=== PATIENT | male | born 1995 | race Caucasian/White ===

== ENCOUNTER 2019-06-21 08:11 | Outpatient (CLI) | payer BC, SELFPAY ==
[2019-06-23 08:50] LABS: COVID-19 RT-PCR Result Negative
== END 2019-06-21 08:31 ==
PROVIDERS: Visit Provider Family Medicine
DX: Z20.828 Contact with and (suspected) exposure to other viral communicable diseases
CPT/HCPCS: U0003

== ENCOUNTER 2019-08-02 16:09 | Outpatient (REF) | payer BC, SELFPAY ==
[2019-08-04 12:46] LABS: COVID-19 RT-PCR UVMMC Result Negative (Negative)
== END 2019-08-02 16:29 ==
LOC: NCHCN 16:09
PROVIDERS: Visit Provider Nurse Practitioner Family
DX: J06.9 Acute upper respiratory infection, unspecified (principal)
CPT/HCPCS: U0003

== ENCOUNTER 2019-08-16 14:10 | Outpatient (REF) | payer BC, SELFPAY ==
[2019-08-19 13:27] LABS: COVID-19 RT-PCR Result NEGATIVE (Negative)
== END 2019-08-16 14:30 ==
LOC: NCHCN 14:10
PROVIDERS: Visit Provider Nurse Practitioner Family
DX: Z20.828 Contact with and (suspected) exposure to other viral communicable diseases (principal)
CPT/HCPCS: U0003

== ENCOUNTER 2022-02-26 13:02 | Emergency (ER) | payer BC, SELFPAY ==
[2022-02-26 13:07] VITALS: BP 139/77; PULSE 64; RESP 18; TEMP 36.9; O2SAT 100
--- NOTE | 2022-02-26 13:15 | RT.EKG_ITS ---
APPROVED REPORT Exam: Resting ECG Reason for Exam: dizzy Patient Location: E HR:60 bpm ECG Measurements Heart Rate 60 AXIS LA 149 P 35 QRSd 88 QRS 54 QT 390 T 35 QTc 391 Conclusion Sinus rhythm...normal P axis, V-rate 60- 99
--- NOTE | 2022-02-26 13:30 | DI.CT_ITS ---
Exam(s) CT HEAD WO EXAM: CT HEAD WO CLINICAL HISTORY: Headache, Dizziness, Facial numbness. TECHNIQUE: Imaging Protocol: Axial computed tomography images with coronal and sagittal reformatted images were created and reviewed COMPARISON: No exams were available for comparison FINDINGS: There are no skull fractures. There is no fluid in the visualized paranasal sinuses. There is no evidence of intracranial hemorrhage, mass effect, or shift of midline structures. There are no extra-axial fluid collections. The ventricles are not enlarged or shifted and there is no blo od within the ventricular system nor within the basal cisterns. IMPRESSION: No acute intracranial findings on this noninfused CT scan of the brain. RADIATION DOSE DELIVERED: 735.84mGy.cm Total DLP DATA REPOSITORY: All CT scans at this facility are submitted to the National Radiology Data Registry (NRDR) Dose Index Registry (DIR) with the [employer] (ACR). RADIATION OPTIMIZATION: All CT scans at this facility use at least one of these dose optimization te chniques: automated exposure control; mA and/or kV adjustment per patient size (includes targeted exa ms where dose is matched to clinical indication); or iterative reconstruction.
--- NOTE | 2022-02-26 13:32 | W.ED.GENAD ---
Discharge Plan Disposition Patient Disposition: Home Condition: Stable Discharge Details Clinical Impression: Elevated TSH, Dizziness Primary Care Provider: Ramiro Bahena ED Provider: Hanna Miranda Home Meds and New Rx's Prescriptions: No Action valacyclovir 500 mg tablet 1 tab PO DAILY Label Comments: TAKE 1 TABLET BY MOUTH TWICE DAILY FOR 3 DAYS THEN TAKE 1 TABLET BY MOUTH DAILY Discharge Instructions Instructions: Hypothyroidism (ED), Dizziness (ED) Additional Instructions: TSH level is 4.52 today, T4 is within normal limits which is 8.8. You are placed on care management list to help you establish primary care provider. Other labs and head CT are within normal limits Follow up with primary care provider in 3-5 days. Return to ED sooner if any worsening or concerns. Increase oral fluids. Please take Tylenol or Ibuprofen with food every 4-6 hours as needed for pain and swelling. Referrals: Sanaz Bridges [employer]INE [employer] [NURSE PRACTITIONER] - 5 days Discharge Data Discharge Date/Time-TO BE ENTERED AT DEPARTURE: 02/26/22 15:13 Medical Decision Making 27-year-old male presents to the ER with chief complaint of headache that radiates up from his occiput, dizziness and facial numbness which began while driving today. Also reports lightheadedness. He also states intermittent abdominal pain to his left upper quadrant for the last 1 month. He denies any recent injuries, no focal neurodeficits noted. Labs are noted below, TSH is slightly elevated at 4.52, free T4 is within normal limits. UDS and urinalysis within normal limits. Head CT shows no acute intracranial abnormalities. Discussed results with patient who verbalized understanding. He does endorse some weight gain. He was placed on a care management list to establish or revisit with his PCP. I did discuss that he needs to follow-up. He verbalized understanding. Discussed return instructions and home care. This text was generated using [employer] dictation system, please disregard any oddities of phrase or misspellings. Lab Data Lab results reviewed: Yes I reviewed the patient's lab results. Labs: Laboratory Tests Range/Units 02/26/22 02/26/22 02/26/22 13:35 13:35 13:35 WBC (4.4-10.8) 10^3/uL 6.97 RBC (4.36-5.78) 10^6/uL 4.80 Hgb (13.5-17.5) g/dL 16.0 Hct (40.0-50.0) % 46.4 MCV (80-95) fL 97 H MCH (27.0-33.0) pg 33.3 H MCHC (32.0-36.0) % 34.5 RDW (11.8-14.1) % 11.8 Plt Count (130-400) 10^3/uL 251 MPV (8.0-11.0) fL 10.2 Immature Gran % 0.6 Neutrophils % 59.0 Lymphocytes % 24.5 Monocytes % 7.2 Eosinophils % 8.0 Basophils % 0.7 Nucleated RBC % (0.0-0.3) % 0.0 Absolute Neutrophils (1.2-6.7) 10^3/uL 4.11 Absolute Lymphocytes (1.2-3.4) 10^3/uL 1.71 Absolute Monocytes (0.1-0.8) 10^3/uL 0.50 Absolute Eosinophils (0.0-0.7) 10^3/uL 0.56 Absolute Basophils (0.0-0.2) 10^3/uL 0.05 Sodium (136-145) mmol/L 138 Potassium (3.5-5.1) mmol/L 4.1 Chloride (98-107) mmol/L 102 Carbon Dioxide (21.0-32.0) mmol/L 31.5 Anion Gap (3-11) mmol/L 4.5 BUN (7-18) mg/dL 15 Creatinine (0.70-1.30) mg/dL 1.5 H Est GFR (CKD-EPI 2020) (mL/min/1.73m2) 64.63 Glucose (74-106) mg/dL 99 Calcium (8.5-10.1) mg/dL 9.4 Magnesium (1.8-2.4) mg/dL 2.2 Total Bilirubin (0.2-1.0) mg/dL 0.6 AST (15-37) U/L 27 ALT (16-63) U/L 38 Alkaline Phosphatase (46-116) U/L 61 Troponin I (<or=60) ng/L < 50 Total Protein (6.4-8.2) g/dL 8.5 H Albumin (3.4-5.0) g/dL 4.7 Lipase (73-393) U/L 132 TSH (0.36-3.74) uIU/mL 4.52 H Thyroxine (T4) (4.7-13.3) ug/dL 8.8 Urine Color (Yellow) Urine Clarity (Clear) Urine pH (5-8) Ur Specific [place] (1.005-1.025) Urine Protein (Negative) mg/dL Urine Ketones (Negative) mg/dL Urine Blood (Negative) Urine Nitrite (Negative) Urine Bilirubin (Negative) Urine Urobilinogen (Up TO 0.2) EU/dL Ur Leukocyte Esterase (Negative) Urine RBC (0-2) HPF Urine WBC (0-5) HPF Ur Epithelial Cells (Negative) HPF Urine Crystals (Negative) HPF Urine Bacteria (Negative) HPF Urine Casts (Negative) LPF Urine Mucus (Negative) Urine Other (Negative) Ur Culture Indicated? Urine Glucose (Negative) mg/dL Urine Opiates Screen (Negative) Urine Methadone Screen (Negative) Ur Barbiturates Screen (Negative) Ur Tricyclics Screen (Negative) Ur Amphetamines Screen (Negative) U Benzodiazepines Scrn (Negative) Urine Cocaine Screen (Negative) Ur THC Screen (Negative) Range/Units 02/26/22 02/26/22 14:22 14:22 WBC (4.4-10.8) 10^3/uL RBC (4.36-5.78) 10^6/uL Hgb (13.5-17.5) g/dL Hct (40.0-50.0) % MCV (80-95) fL MCH (27.0-33.0) pg MCHC (32.0-36.0) % RDW (11.8-14.1) % Plt Count (130-400) 10^3/uL MPV (8.0-11.0) fL Immature Gran % Neutrophils % Lymphocytes % Monocytes % Eosinophils % Basophils % Nucleated RBC % (0.0-0.3) % Absolute Neutrophils (1.2-6.7) 10^3/uL Absolute Lymphocytes (1.2-3.4) 10^3/uL Absolute Monocytes (0.1-0.8) 10^3/uL Absolute Eosinophils (0.0-0.7) 10^3/uL Absolute Basophils (0.0-0.2) 10^3/uL Sodium (136-145) mmol/L Potassium (3.5-5.1) mmol/L Chloride (98-107) mmol/L Carbon Dioxide (21.0-32.0) mmol/L Anion Gap (3-11) mmol/L BUN (7-18) mg/dL Creatinine (0.70-1.30) mg/dL Est GFR (CKD-EPI 2020) (mL/min/1.73m2) Glucose (74-106) mg/dL Calcium (8.5-10.1) mg/dL Magnesium (1.8-2.4) mg/dL Total Bilirubin (0.2-1.0) mg/dL AST (15-37) U/L ALT (16-63) U/L Alkaline Phosphatase (46-116) U/L Troponin I (<or=60) ng/L Total Protein (6.4-8.2) g/dL Albumin (3.4-5.0) g/dL Lipase (73-393) U/L TSH (0.36-3.74) uIU/mL Thyroxine (T4) (4.7-13.3) ug/dL Urine Color (Yellow) Yellow Urine Clarity (Clear) Clear Urine pH (5-8) 6.5 Ur Specific [place] (1.005-1.025) 1.015 Urine Protein (Negative) mg/dL Negative Urine Ketones (Negative) mg/dL Negative Urine Blood (Negative) Negative Urine Nitrite (Negative) Negative Urine Bilirubin (Negative) Negative Urine Urobilinogen (Up TO 0.2) EU/dL 0.2 Ur Leukocyte Esterase (Negative) Trace H Urine RBC (0-2) HPF Negative Urine WBC (0-5) HPF 0-2 Ur Epithelial Cells (Negative) HPF Negative Urine Crystals (Negative) HPF Negative Urine Bacteria (Negative) HPF Few Urine Casts (Negative) LPF Negative Urine Mucus (Negative) Negative Urine Other (Negative) Negative Ur Culture Indicated? No Urine Glucose (Negative) mg/dL Negative Urine Opiates Screen (Negative) Negative Urine Methadone Screen (Negative) Negative Ur Barbiturates Screen (Negative) Negative Ur Tricyclics Screen (Negative) Negative Ur Amphetamines Screen (Negative) Negative U Benzodiazepines Scrn (Negative) Negative Urine Cocaine Screen (Negative) Negative Ur THC Screen (Negative) Negative HPI General Mode of arrival: ambulatory. Date/Time Provider Initiated Documentation: 02/26/22 13:19. Limitations to Documentation: no limitations. Information obtained by: patient, RN notes reviewed and old records reviewed. HPI Narrative: 27-year-old male presents to the ER with chief complaint of headache that radiates up from his occiput, dizziness and facial numbness which began while driving today. Also reports lightheadedness. He also states intermittent abdominal pain to his left upper quadrant for the last 1 month. He denies any recent injuries, no focal neurodeficits noted. He does smoke occasional marijuana and does vape. He also reports some tinnitus which she has been dealing with for a while. Related Data Home Medications Medication Instructions Recorded Confirmed valacyclovir 500 mg tablet 1 tab PO DAILY 02/26/22 02/26/22 Allergies Allergy/AdvReac Type Severity Reaction Status Date / Time No Known Allergies Allergy Unverified 02/26/22 13:11 General Stated Complaint: Dizzy/Sync TAB: 3 Review of Systems All systems reviewed & are unremarkable except as noted in HPI and below Constitutional Constitutional: Reports as per HPI and Reports headache(s) ENT Ears, Nose, Mouth, and Throat: Reports dizziness and Reports headache(s) Cardiovascular Cardiovascular: Denies chest pain and Denies dyspnea Respiratory Respiratory: Denies dyspnea Musculoskeletal Musculoskeletal: Reports tingling Neurologic Neurologic: Reports as per HPI, Reports dizziness, Reports headache(s) and Reports tingling PFSH All Active Problems (Updated 02/26/22 @ 14:53 by Hanna Miranda NP) Elevated TSH (Acute) Dizziness (Acute) Social History Smoking/Tobacco Use Status: Current every day Tobacco Type: e-cigarettes Smoking risk assessment performed?: Yes Alcohol Intake: current Alcohol Intake frequency: a few times a week Drug use: Rarely Substance use type: marijuana Exam Narrative Exam Narrative: Constitutional: Alert and oriented x3. Appears stated age. Normal body habitus. Head: Normocephalic, no trauma. Eyes: Pupils PERRL, Red reflex noted, EOM's intact. Eyelids symmetrical without lesions, discharge, or swelling. ENT: Bilateral TM's WNL, External ear normal to inspection, no mastoid TTP, swelling, or erythema, Nasal turbinates WNL, no nasal discharge. Normal dentition, Posterior pharynx WNL, no exudate. Chest: RRR, Normal S1, S2, distal pulses intact. Resp: Lungs clear to auscultation bilaterally, no wheezes, rales, or rhonchi. Abdomen: Soft, non-distended, Normoactive bowel sounds all 4 quads. Musculoskeletal: Normal gait, 5/5 strength to all four extremities. Skin: No suspicious rashes or lesions. Capillary refill less than 2 sec. Neurologic: Cranial nerves II-XII intact. Alert and oriented x 3. Motor: No deficits noted. Sensory: Intact bilaterally all 4 extremities. Reflexes: DTR's intact bilaterally.. Hematologic/Lymphatic: No ecchymosis, no lymphadenopathy. Course Vital Signs Vital signs: Vital Signs Temperature 36.9 C 02/26/22 13:07 Pulse 64 02/26/22 13:07 Respiratory Rate 18 02/26/22 13:07 Blood Pressure 139/77 02/26/22 13:07 Pulse Oximetry 100 02/26/22 13:07 Temperature 36.9 C 02/26/22 13:07 Temperature Source Temporal Artery Scan 02/26/22 13:07 Pulse 64 02/26/22 13:07 Respiratory Rate 18 02/26/22 13:07 Respiratory Effort Non-Labored 02/26/22 13:12 Blood Pressure 139/77 02/26/22 13:07 Blood Pressure Position Sitting 02/26/22 13:07 Pulse Oximetry 100 02/26/22 13:07 Oxygen Delivery Method Room Air 02/26/22 13:07 Oxygen Flow Rate 0 02/26/22 13:07 PAWSS Have you Been Recently Intoxicated or Drunk Within the Last 30 days?: No Have you Ever Experienced Previous Episodes of Alcohol Withdrawal?: No Have you ever Experienced Withdrawal Seizures?: No Have you ever Experienced Delirium Tremens(DT)s?: No Have you ever undergone Alcohol Rehabilitation Treatment (i.e, inpt ot outpatient treatment programs)?: No Have you ever Experienced Blackouts?: No Have you ever Combined Alcohol with other Downers within the last 90 days?: No Have you ever Combined Alcohol with any other Substance of Abuse during the last 90 days?: No Positive Blood Alcohol level on Presentation? [PCS.BAL]: No Evidence of Increased Autonomic Activity (i.e. HR>120, tremor, sweating, agitation, nausea)?: No Result: 0
[2022-02-26 13:46] LABS: Abs Immature Grans 0.04 10^3/uL (0.0-0.06); Absolute Basophil Count 0.05 10^3/uL (0.0-0.2); Absolute Eosinophil Count 0.56 10^3/uL (0.0-0.7); Absolute Lymphocyte Count 1.71 10^3/uL (1.2-3.4); Absolute Neutrophil Count 4.11 10^3/uL (1.2-6.7); Basophils % 0.7; HCT 46.4 % (40.0-50.0); Immature Grans % 0.6; Lymphocytes % 24.5; MCH 33.3 pg (27.0-33.0); MCHC 34.5 % (32.0-36.0); MCV 97 fL (80-95); MPV 10.2 fL (8.0-11.0); Monocytes % 7.2; Platelet Count 251 10^3/uL (130-400); RDW 11.8 % (11.8-14.1); RDW-SD 42.2 fL; WBC 6.97 10^3/uL (4.4-10.8)
[2022-02-26 14:10] LABS: ALT 38 U/L (16-63); AST 27 U/L (15-37); Albumin 4.7 g/dL (3.4-5.0); Alkaline Phosphatase 61 U/L (46-116); Anion Gap 4.5 mmol/L (3-11); BUN 15 mg/dL (7-18); Bilirubin, Total 0.6 mg/dL (0.2-1.0); CO2 31.5 mmol/L (21.0-32.0); CREATININE 1.5 mg/dL (0.70-1.30); Calcium 9.4 mg/dL (8.5-10.1); Chloride 102 mmol/L (98-107); Estimated GFR 64.63 (mL/min/1.73m2); Glucose 99 mg/dL (74-106); Lipase 132 U/L (73-393); Magnesium 2.2 mg/dL (1.8-2.4); Potassium 4.1 mmol/L (3.5-5.1); Sodium 138 mmol/L (136-145); TSH 4.52 uIU/mL (0.36-3.74); Total Protein 8.5 g/dL (6.4-8.2); Troponin I < 50 ng/L (<or=60)
[2022-02-26 14:41] LABS: Bilirubin Negative (Negative); Blood Negative (Negative); Clarity Clear (Clear); Glucose Negative (Negative); Ketones Negative (Negative); Leukocyte Esterase Trace (Negative); Nitrite Negative (Negative); Specific Gravity 1.015 (1.005-1.025); Urobilinogen 0.2 EU/dL (Up TO 0.2); pH 6.5 (5-8)
[2022-02-26 14:42] LABS: T4 8.8 ug/dL (4.7-13.3)
[2022-02-26 14:51] LABS: *AMPHETAMINES SCREEN URINE Negative (Negative); *BARBITURATES SCREEN URINE Negative (Negative); *BENZODIAZEPINES SCREEN URINE Negative (Negative); Bacteria Few HPF (Negative); C & S Indicated? No; Cannabinoids THC Negative (Negative); Casts Negative LPF (Negative); Cocaine Screen,Urine Negative (Negative); Crystals Negative HPF (Negative); Epithelial Cells Negative HPF (Negative); METHADONE URINE SCREEN Negative (Negative); Mucus Negative (Negative); OPIATES URINE SCREEN Negative (Negative); Other Cells Negative (Negative); RBC Negative HPF (0-2); WBC 0-2 HPF (0-5)
[2022-02-26 14:52] LABS: Tricyclic Antidepressants Negative (Negative)
[2022-02-26 15:10] VITALS: RESP 18
== END 2022-02-26 15:13 | disposition home or self-care (01) ==
PROVIDERS: Emergency Provider Registered Nurse Emergency; PCP Physician Assistant
DX: R42 Dizziness and giddiness (principal); R94.6 Abnormal results of thyroid function studies; R20.2 Paresthesia of skin; R10.12 Left upper quadrant pain; R51.9 Headache, unspecified
CPT/HCPCS: 80053; 80307; 83690; 93005; 99284; 70450; 81003; 81015; 83735; 84436; 84443; 84484; 85025; 93010

== ENCOUNTER 2022-03-08 19:21 | Emergency (ER) | payer BC, SELFPAY ==
[2022-03-08] VITALS (11 sets, daily range): BP systolic 116–137; BP diastolic 67–84; PULSE 59–87; RESP 11–24; TEMP 36.7–37; O2SAT 95–100
--- NOTE | 2022-03-08 19:30 | RT.EKG_ITS ---
APPROVED REPORT Exam: Resting ECG Reason for Exam: chest and arm pain Patient Location: E HR:61 bpm ECG Measurements Heart Rate 61 AXIS VT 148 P 39 QRSd 82 QRS 48 QT 374 T 20 QTc 378 Conclusion Sinus rhythm...normal P axis, V-rate 60- [address] elevation, anterior leads...ST >0.15mV in V1-V4 Physician: no stemi
--- NOTE | 2022-03-08 19:45 | DI.RAD_ITS ---
Exam(s) XR CHEST 2V PA LATERAL EXAM: XR CHEST 2V PA LATERAL CLINICAL HISTORY: L neck pain TECHNIQUE: 2D digital imaging was performed. COMPARISON: No exams were available for comparison FINDINGS: HEART: Normal size. Aorta: Not dilated. PULMONARY VASCULATURE: Normal. LUNGS: Clear. PLEURAL SPACE: No pleural effusion or pneumothorax. BONE:Unremarkable for age. IMPRESSION: No acute abnormality. DATA REPOSITORY: RADIATION DOSE DELIVERED:
--- NOTE | 2022-03-08 19:50 | DI.CT_ITS ---
Exam(s) CT BRAIN NECK CTA EXAM: CT BRAIN NECK CTA CLINICAL HISTORY: L neck pain, dizzy. TECHNIQUE: Imaging Protocol: Axial CT angiography was performed with multi-slice acquisition and mu lti-planar and 3D reconstructions. CONTRAST MATERIAL: Intravenous: Omnipaque 350 Contrast volume:structured data in ml COMPARISON: No exams were available for comparison FINDINGS: CT Head W/O and W contrast: Ventricles and Extra axial spaces: Normal in size and morphology for the patient's age. Hemorrhage: None. Cerebral parenchyma: Normal. Midline shift: None. Brainstem/Cerebellum: Normal. Calvarium: Normal. Visualized Paranasal sinuses/Mastoids: Clear. Soft Tissues: Unremarkable. Enhancement: Normal. CTA Brain W: Internal Carotid Arteries: Petrous: Normal. Cavernous: Normal. Cerebral: Normal. Middle Cerebral Arteries: Right: No aneurysm, occlusion or significant stenosis. Left: No aneurysm, occlusion or significant stenosis. Anterior Cerebral Arteries: Right: No aneurysm, occlusion or significant stenosis. Left: No aneurysm, occlusion or significant stenosis. Posterior cerebral Arteries: Right: origin, normal variant. No aneurysm, occlusion or significant stenosis. Left: No aneurysm, occlusion or significant stenosis. Vertebral Arteries: Right: No aneurysm, occlusion or significant stenosis. Left: No aneurysm, occlusion or significant stenosis. Basilar Artery: No aneurysm, occlusion or significant stenosis. CTA Neck W: Common Carotid: Right: No aneurysm, occlusion or significant stenosis. Left: No aneurysm, occlusion or significant stenosis. External Carotid: Right: No aneurysm, occlusion or significant stenosis. Left: No aneurysm, occlusion or significant stenosis. Internal Carotid: Right: No aneurysm, occlusion or significant stenosis. Left: No aneurysm, occlusion or significant stenosis. Vertebral Artery: Right: No aneurysm, occlusion or significant stenosis. Left: No aneurysm, occlusion or significant stenosis. Lung Apices: Normal. Bones: Normal. Soft Tissues: Normal. IMPRESSION: 1. Normal CTA examination of the [place]. 2. Unremarkable CT Head. 3. Normal CTA examination of the neck. RADIATION DOSE DELIVERED: 2,075.25mGy.cm Total DLP DATA REPOSITORY: All CT scans at this facility are submitted to the National Radiology Data Registry (NRDR) Dose Index Registry (DIR) with the [employer] (ACR). RADIATION OPTIMIZATION: All CT scans at this facility use at least one of these dose optimization te chniques: automated exposure control; mA and/or kV adjustment per patient size (includes targeted exa ms where dose is matched to clinical indication); or iterative reconstruction.
--- NOTE | 2022-03-08 19:53 | ED.GENADUL_ITS ---
Discharge Plan Disposition Patient Disposition: Home Condition: Stable Discharge Details Clinical Impression: Paresthesia, Neck pain Primary Care Provider: Ramiro Bahena ED Provider: Chintan Norris Home Meds and New Rx's Prescriptions: Continued valacyclovir 500 mg tablet 1 tab PO DAILY Label Comments: TAKE 1 TABLET BY MOUTH TWICE DAILY FOR 3 DAYS THEN TAKE 1 TABLET BY MOUTH DA CR Discharge Instructions Instructions: Neck Pain (ED), Paresthesia (ED) Additional Instructions: Work-up in the ER does not reveal any obvious emergent process. Your symptoms have resolved spontaneously. [id number] anti-inflammatory medication as directed. Cool and/or warm compresses every 2 hours for 20 minutes. Gentle stretching as tolerated. Please watch for new or worsening symptoms and return to the ER for any concerns. Lastly, I would like you to contact your primary care provider tomorrow to discuss your ER visit, ongoing symptoms, and need for prompt outpatient reevaluation. Medical Decision Making This is a 27-year-old male presenting to the ER this evening, slightly anxious, reporting left sided neck pain, arm paresthesias that had been going on intermittently but more often they are than not since the end of January. Denies any obvious injury, trauma, recent illness. Was initially seen in the ER, subsequently seen by his PCP, awaiting an outpatient ultrasound, reports symptoms today worsened this evening while at work. He is left hand dominant. Clinically he appears slightly anxious but neurologically intact. Denies any active headache. Given his ongoing symptoms, plan to obtain a cardiac work-up including a single troponin given the duration of his symptoms, we will also obtain CTA of the brain and neck. During his last ER visit he had a Noncon CT of his brain which was unremarkable. Laboratory values are grossly unremarkable for obvious emergent process. Troponin less than 50. TSH normal at 2.35. No leukocytosis. Patient returned from CT and upon reevaluation he is no longer anxious. Patient appears calm. I am able to speak with him in greater length regarding his symptoms. He states that his symptoms seem to stem from the left side of his neck at the base of his skull, seem to radiate down into his shoulder, and then he gets paresthesias in his forearm, hand. He reports nothing makes the symptoms worse or better. He denies any true weakness. Denies any chest pain or shortness of breath whatsoever. He states that when he gets the symptoms he typically puts a warm compress to the back of his neck until his symptoms go away. Clinically this appears to be more musculoskeletal with the 10 paresthesias. Patient has a 2+ bilateral radial pulse which are equal. He remains hemodynamically stable. We discussed that his examination does not appear to be consistent with a DVT. Extremely low suspicion for acute cardiac etiology. Per the PERC criteria, I see no indication to obtain a D-dimer. Chest x-ray and CTA of the brain and neck are both unremarkable. Discussed results with patient. He is relieved and reports that he is feeling overall tired from a stressful day but is otherwise asymptomatic. We discussed disposition and he is comfortable discharge at this time. Strict discharge and return precautions were provided. Patient understands, is agreeable to this plan, and has no additional questions or concerns upon discharge. This documentation was generated using [employer] system, please disregard any oddities of phrase or misspellings. Medical Records Medical records reviewed: Yes I reviewed the patient's medical records. Imaging Data Radiologic Study: Attestation: I personally reviewed and interpreted this imaging study as follows: Imaging: CT Scan Radiologist's impression: PROCEDURE INFORMATION: Exam: CTA Head With Contrast, Arteriography Exam date and time: 03/08/2022 8:24 PM Age: 27 years old Clinical indication: Stroke-like symptoms; Dizziness/giddiness and other: L neck pain; Left upper extremity numbness/paresthesia; Additional info: L neck pain, dizziness TECHNIQUE: Imaging protocol: Computed tomographic angiography of the head with contrast. Exam focused on the arteries. 3D rendering (Not supervised by radiologist): MIP and/or 3D reconstructed images were created by the technologist. Radiation optimization: All CT scans at this facility use at least one of these dose optimization techniques: automated exposure control; mA and/or kV adjustment per patient size (includes targeted exams where dose is matched to clinical indication); or iterative reconstruction. Contrast material: OMNIPAQUE 350; Contrast volume: 85 ml; Contrast route: INTRAVENOUS (IV); COMPARISON: CT HEAD WO 02/26/2022 2:01 PM FINDINGS: ANTERIOR CIRCULATION: Right internal carotid artery: Intracranial segment is patent with no significant stenosis. No aneurysm. Right middle cerebral artery: No occlusion or significant stenosis. No aneurysm. Right anterior cerebral artery: No occlusion or significant stenosis. No aneurysm. Left internal carotid artery: Intracranial segment is patent with no significant stenosis. No aneurysm. Left middle cerebral artery: No occlusion or significant stenosis. No aneurysm.Left anterior cerebral artery: No occlusion or significant stenosis. No aneurysm. POSTERIOR CIRCULATION: Right vertebral artery: No occlusion or significant stenosis. No aneurysm. Left vertebral artery: No occlusion or significant stenosis. No aneurysm. Basilar artery: No occlusion or significant stenosis. No aneurysm. Right posterior cerebral artery: origin of the right posterior cerebral artery is a common developmental variant and there is no occlusion or significant stenosis. No aneurysm. Left posterior cerebral artery: No occlusion or significant stenosis. No aneurysm. Brain: No intracranial mass, acute infarct or recent hemorrhage detected. Cer ebral ventricles: No midline shift or hydrocephalus. Mastoid air cells: Grossly clear bilaterally. Paranasal sinuses: Grossly clear throughout. Bones/joints: No acute fracture. Soft tissues: Unremarkable. IMPRESSION: No large vessel stenosis or occlusion detected involving the major branches of the anterior or posterior intracranial circulation. PROCEDURE INFORMATION: Exam: CTA Neck With Contrast Exam date and time: 03/08/2022 8:24 PM Age: 27 years old Clinical indication: Stroke-like symptoms; Dizziness/giddiness and other: L neck pain; Left upper extremity numbness/paresthesia; Additional info: L neck pain, dizziness TECHNIQUE: Imaging protocol: Computed tomographic angiography of the neck with contrast. 3D rendering (Not supervised by radiologist): MIP and/or 3D reconstructed images were created by the technologist. Radiation optimization: All CT scans at this facility use at least one of these dose optimization techniques: automated exposure control; mA and/or kV adjustment per patient size (includes targeted exams where dose is matched to clinical indication); or iterative reconstruction. Contrast material: OMNIPAQUE 350; Contrast volume: 85 ml; Contrast route: INTRAVENOUS (IV); COMPARISON: CT HEAD WO 02/26/2022 2:01 PM FINDINGS: Right common carotid artery: No stenosis. No dissection or occlusion. Right internal carotid artery: No stenosis of the extracranial segment. No dissection or occlusion. Right external carotid artery: No occlusion or stenosis of the origin.Left common carotid artery: No stenosis. No dissection or occlusion. Left internal carotid artery: No stenosis of the extracranial segment. No dissection or occlusion. Left external carotid artery: No occlusion or stenosis of the origin. Right vertebral artery: No stenosis. No dissection or occlusion. Left vertebral artery: No stenosis. No dissection or occlusion. Soft tissues: Normal. No significant soft tissue swelling. Bones/joints: No acute fracture. IMPRESSION: No evidence of 50% or greater stenosis involving the cervical segments of the right or left internal carotid arteries by NASCET criteria. REFERENCES: NASCET CRITERIA. The degree of stenosis in the cervical segment of the internal carotid artery is based on NASCET criteria. Normal is no stenosis. Mild is less than 50% stenosis. Moderate is 50- 69% stenosis. Severe is 70% to 99% stenosis. Total occlusion is no detectable patent lumen. Radiologic Study #2: Attestation: I personally reviewed and interpreted this imaging study as follows: Imaging: X-Ray Radiologist's impression: PROCEDURE INFORMATION: Exam: XR Chest Exam date and time: 03/08/2022 8:46 PM Age: 27 years old Clinical indication: Other: L neck pain, dizziness TECHNIQUE: Imaging protocol: Radiologic exam of the chest. Views: 2 views. COMPARISON: CT BRAIN NECK CTA 03/08/2022 8:24 PM FINDINGS: Lungs: Lungs are clear throughout with no mass or consolidation detected. Pleural spaces: No pneumothorax or pleural effusion detected. Heart/Mediastinum: Heart size is normal and vessel margins are sharply defined. Bones/joints: No acute osseous lesions are detected. IMPRESSION: No acute findings. Lab Data Lab results reviewed: Yes I reviewed the patient's lab results. Labs: Laboratory Tests Range/Units 03/08/22 03/08/22 03/08/22 20:10 20:10 20:10 WBC (4.4-10.8) 10^3/uL RBC (4.36-5.78) 10^6/uL Hgb (13.5-17.5) g/dL Hct (40.0-50.0) % MCV (80-95) fL MCH (27.0-33.0) pg MCHC (32.0-36.0) % RDW (11.8-14.1) % Plt Count (130-400) 10^3/uL MPV (8.0-11.0) fL Immature Gran % Neutrophils % Lymphocytes % Monocytes % Eosinophils % Basophils % Nucleated RBC % (0.0-0.3) % Absolute Neutrophils (1.2-6.7) 10^3/uL Absolute Lymphocytes (1.2-3.4) 10^3/uL Absolute Monocytes (0.1-0.8) 10^3/uL Absolute Eosinophils (0.0-0.7) 10^3/uL Absolute Basophils (0.0-0.2) 10^3/uL PT (9.3-11.0) sec 9.7 INR (0.9-1.1) 1.0 APTT (21.0-27.5) sec 23.9 Sodium (136-145) mmol/L 141 Potassium (3.5-5.1) mmol/L 3.9 Chloride (98-107) mmol/L 105 Carbon Dioxide (21.0-32.0) mmol/L 33.1 H Anion Gap (3-11) mmol/L 2.9 L BUN (7-18) mg/dL 17 Creatinine (0.70-1.30) mg/dL 1.4 H Est GFR (CKD-EPI 2020) (mL/min/1.73m2) 70.21 Glucose (74-106) mg/dL 84 Calcium (8.5-10.1) mg/dL 9.2 Magnesium (1.8-2.4) mg/dL 2.1 Total Bilirubin (0.2-1.0) mg/dL 0.4 AST (15-37) U/L 26 ALT (16-63) U/L 39 Alkaline Phosphatase (46-116) U/L 60 Troponin I (<or=60) ng/L < 50 Total Protein (6.4-8.2) g/dL 7.5 Albumin (3.4-5.0) g/dL 4.2 TSH (0.36-3.74) uIU/mL 2.35 Urine Opiates Screen (Negative) Urine Methadone Screen (Negative) Ur Barbiturates Screen (Negative) Ur Tricyclics Screen (Negative) Ur Amphetamines Screen (Negative) U Benzodiazepines Scrn (Negative) Urine Cocaine Screen (Negative) Ur THC Screen (Negative) Ethyl Alcohol (<10) mg/dL Range/Units 03/08/22 03/08/22 03/08/22 20:10 20:10 21:05 WBC (4.4-10.8) 10^3/uL 6.75 RBC (4.36-5.78) 10^6/uL 4.43 Hgb (13.5-17.5) g/dL 14.6 Hct (40.0-50.0) % 43.2 MCV (80-95) fL 98 H MCH (27.0-33.0) pg 33.0 MCHC (32.0-36.0) % 33.8 RDW (11.8-14.1) % 11.5 L Plt Count (130-400) 10^3/uL 245 MPV (8.0-11.0) fL 10.4 Immature Gran % 0.3 Neutrophils % 68.3 Lymphocytes % 19.0 Monocytes % 6.8 Eosinophils % 5.0 Basophils % 0.6 Nucleated RBC % (0.0-0.3) % 0.0 Absolute Neutrophils (1.2-6.7) 10^3/uL 4.61 Absolute Lymphocytes (1.2-3.4) 10^3/uL 1.28 Absolute Monocytes (0.1-0.8) 10^3/uL 0.46 Absolute Eosinophils (0.0-0.7) 10^3/uL 0.34 Absolute Basophils (0.0-0.2) 10^3/uL 0.04 PT (9.3-11.0) sec INR (0.9-1.1) APTT (21.0-27.5) sec Sodium (136-145) mmol/L Potassium (3.5-5.1) mmol/L Chloride (98-107) mmol/L Carbon Dioxide (21.0-32.0) mmol/L Anion Gap (3-11) mmol/L BUN (7-18) mg/dL Creatinine (0.70-1.30) mg/dL Est GFR (CKD-EPI 2020) (mL/min/1.73m2) Glucose (74-106) mg/dL Calcium (8.5-10.1) mg/dL Magnesium (1.8-2.4) mg/dL Total Bilirubin (0.2-1.0) mg/dL AST (15-37) U/L ALT (16-63) U/L Alkaline Phosphatase (46-116) U/L Troponin I (<or=60) ng/L Total Protein (6.4-8.2) g/dL Albumin (3.4-5.0) g/dL TSH (0.36-3.74) uIU/mL Urine Opiates Screen (Negative) Negative Urine Methadone Screen (Negative) Negative Ur Barbiturates Screen (Negative) Negative Ur Tricyclics Screen (Negative) Negative Ur Amphetamines Screen (Negative) Negative U Benzodiazepines Scrn (Negative) Negative Urine Cocaine Screen (Negative) Negative Ur THC Screen (Negative) Negative Ethyl Alcohol (<10) mg/dL < 3.0 ECG Data Attestation: I personally reviewed and interpreted this ECG (s) as follows: Interpretation: Sinus rhythm, ventricular rate of 61, no STEMI. HPI General Mode of arrival: ambulatory . Date/Time Provider Initiated Documentation: 03/08/22 19:30 . Limitations to Documentation: no limitations . Information obtained by: patient and family . HPI Narrative: This is a 27-year-old male, denies significant past medical history, reports that he is a former smoker, former vapor, presenting to the ER today for a dull ache at the base of his left neck he reports has been present since nearly 02-25-2022 causing his left forearm to feel tingly and his left hand to feel cold. He does report a mild dull headache occasionally. Patient states that he was seen for this on the and subsequently followed up with his PCP, scheduled for an outpatient ultrasound but this not happened yet. Patient denies anything making the pain worse or better. He denies recent illness or trauma. He denies visual changes, true numbness, weakness, chest pain, shortness of breath, abdominal pain, nausea, vomiting. Patient reports that he thought he felt an occasional paresthesia in his left lower extremity which seem to be associated when he had tingling in his left forearm. He denies any change in bowel or bladder function. Related Data Home Medications Medication Instructions Recorded Confirmed valacyclovir 500 mg tablet 1 tab PO DAILY 02/26/22 02/26/22 Allergies Allergy/AdvReac Type Severity Reaction Status Date / Time No Known Allergies Allergy Unverified 02/26/22 13:11 General Stated Complaint: GenMedical TAB: 4 Review of Systems Constitutional Constitutional: Denies fatigue, Denies fever(s), Reports headache(s) and Denies weakness Eyes Eyes: Denies change in vision ENT Ears, Nose, Mouth, and Throat: Reports headache(s) and Reports neck pain Cardiovascular Cardiovascular: Denies chest pain and Denies dyspnea Respiratory Respiratory: Denies cough and Denies dyspnea Gastrointestinal Gastrointestinal: Denies abdominal pain, Denies nausea and Denies vomiting Genitourinary Genitourinary: Denies dysuria Musculoskeletal Musculoskeletal: Denies back pain, Reports neck pain, Denies numbness and Reports tingling Integumentary/Breasts Skin/Breast: Denies rash Neurologic Neurologic: Reports headache(s), Denies numbness, Reports tingling and Denies weakness Endocrine Endocrine: Denies fatigue PFSH All Active Problems (Updated 03/08/22 @ 21:38 by LIZ Wilder) Elevated TSH (Acute) Dizziness (Acute) Paresthesia (Acute) Neck pain (Acute) Social History Smoking/Tobacco Use Status: Former Tobacco Use Smoking risk assessment performed?: Yes Alcohol Intake: current Alcohol Intake frequency: a few times a week Drug use: Rarely Substance use type: marijuana Do you feel safe at home: Yes Do you feel safe in your relationship?: Yes Exam Const General: cooperative, healthy appearing, comfortable, no acute distress and anxious Orientation: alert, awake and oriented x3 HENMT Head: normal to inspection, normocephalic and atraumatic Face and sinus: normal facial exam Mouth: moist mucous membranes Eyes General: appearance normal, both eyes and all related structures Alignment and Position: alignment normal Periorbital: periorbital findings normal Eyelids: eyelids normal Conjunctivae: conjunctivae normal Sclera: sclerae normal Cornea: corneas normal Pupils: PERRL EOM: EOM intact bilaterally Direct ophthalmoscopy: normal light reflex Neck Neck: normal visual inspection, full ROM, no lymphadenopathy, no meningeal signs, trachea midline, supple and nontender Carotids: no bruits Chest Chest: normal inspection of the chest and normal palpation of entire chest wall Resp Effort & Inspection: normal respiratory effort and able to speak in complete sentences Auscultation: clear to auscultation bilaterally Cardio Rate: regular rate Rhythm: regular rhythm GI Palpation: soft, not firm, no guarding and nontender Back/Spine/Pelvis Back: no CVA tenderness and No back tenderness Skin General skin exam: no rashes or lesions noted Neuro General: patient alert, patient awake, patient oriented x3, moves all extremities and no focal motor deficits Cranial Nerves: CN's II-XI intact bilaterally Cognition: normal cognition Speech: speech normal Gait: normal gait Motor: muscle tone normal throughout, strength 5/5 throughout, no pronator drift, no movement abnormalities noted and no fasciculations Sensory Exam: no sensory deficits noted Coordination: Does not sway with eyes open Extrem General: normal to inspection, full ROM, capillary refill normal, no pedal edema and no calf tenderness Psych Appearance: grossly normal Mental Status: mental status grossly normal Course Vital Signs Vital signs: Vital Signs Temperature 36.7 C 03/08/22 19:25 Pulse 87 03/08/22 19:25 Respiratory Rate 24 03/08/22 19:25 Blood Pressure 137/84 03/08/22 19:25 Pulse Oximetry 100 03/08/22 19:25 Temperature 36.7 C 03/08/22 19:25 Temperature Source Temporal Artery Scan 03/08/22 19:25 Pulse 87 03/08/22 19:25 Respiratory Rate 24 03/08/22 19:25 Respiratory Effort 03/08/22 19:33 Respiratory Depth Normal 03/08/22 19:33 Respiratory Pattern Normal 03/08/22 19:33 Blood Pressure 137/84 03/08/22 19:25 Blood Pressure Position Sitting 03/08/22 19:25 Pulse Oximetry 100 03/08/22 19:25 Oxygen Delivery Method Room Air 03/08/22 19:25 Oxygen Flow Rate 0 03/08/22 19:25 PAWSS Have you Been Recently Intoxicated or Drunk Within the Last 30 days?: No Have you Ever Experienced Previous Episodes of Alcohol Withdrawal?: No Have you ever Experienced Withdrawal Seizures?: No Have you ever Experienced Delirium Tremens(DT)s?: No Have you ever undergone Alcohol Rehabilitation Treatment (i.e, inpt ot outpatient treatment programs)?: No Have you ever Experienced Blackouts?: No Have you ever Combined Alcohol with other Downers within the last 90 days?: No Have you ever Combined Alcohol with any other Substance of Abuse during the last 90 days?: No Positive Blood Alcohol level on Presentation? [PCS.BAL]: No Evidence of Increased Autonomic Activity (i.e. HR>120, tremor, sweating, agitation, nausea)?: No Result: 0
[2022-03-08] MEDS: Omnipaque 350 MG/ML 100 ML BTL IJ (20:21)
[2022-03-08] MEDS: Normal Saline - Diluent 50 ML VIAL IJ (20:21)
[2022-03-08] MEDS: Normal Saline Flush 10 ML SYR IVP (20:23)
[2022-03-08 20:24] LABS: Abs Immature Grans 0.02 10^3/uL (0.0-0.06); Absolute Basophil Count 0.04 10^3/uL (0.0-0.2); Absolute Eosinophil Count 0.34 10^3/uL (0.0-0.7); Absolute Lymphocyte Count 1.28 10^3/uL (1.2-3.4); Absolute Monocyte Count 0.46 10^3/uL (0.1-0.8); Absolute Neutrophil Count 4.61 10^3/uL (1.2-6.7); Basophils % 0.6; HCT 43.2 % (40.0-50.0); HGB 14.6 g/dL (13.5-17.5); Immature Grans % 0.3; MCHC 33.8 % (32.0-36.0); MCV 98 fL (80-95); MPV 10.4 fL (8.0-11.0); Monocytes % 6.8; Neutrophils % 68.3; Platelet Count 245 10^3/uL (130-400); RBC 4.43 10^6/uL (4.36-5.78); RDW 11.5 % (11.8-14.1); RDW-SD 41.5 fL; WBC 6.75 10^3/uL (4.4-10.8)
[2022-03-08 20:36] LABS: PTT Activated 23.9 sec (21.0-27.5); Prothrombin Time 9.7 sec (9.3-11.0)
[2022-03-08 20:40] LABS: ALT 39 U/L (16-63); AST 26 U/L (15-37); Albumin 4.2 g/dL (3.4-5.0); Alkaline Phosphatase 60 U/L (46-116); Anion Gap 2.9 mmol/L (3-11); BUN 17 mg/dL (7-18); Bilirubin, Total 0.4 mg/dL (0.2-1.0); CO2 33.1 mmol/L (21.0-32.0); CREATININE 1.4 mg/dL (0.70-1.30); Calcium 9.2 mg/dL (8.5-10.1); Chloride 105 mmol/L (98-107); Estimated GFR 70.21 (mL/min/1.73m2); Glucose 84 mg/dL (74-106); Potassium 3.9 mmol/L (3.5-5.1); Sodium 141 mmol/L (136-145); Total Protein 7.5 g/dL (6.4-8.2); Troponin I < 50 ng/L (<or=60)
[2022-03-08 20:48] LABS: Magnesium 2.1 mg/dL (1.8-2.4); TSH (W/Ref FT4) 2.35 uIU/mL (0.36-3.74)
[2022-03-08 21:00] LABS: ETHANOL BLOOD < 3.0 mg/dL (<10)
--- NOTE | 2022-03-08 21:03 | DI.VRAD_ITS ---
Addendum created by George Garcia MD on 03/08/2022 9:05:43 PM EST: THIS REPORT CONTAINS FINDINGS THAT MAY BE CRITICAL TO PATIENT CARE. The findings were verbally communicated via telephone conference with Chintan Norris at 9:05 PM EST on 03/08/2022. The findings were acknowledged and understood. Initial report created on 03/08/2022 9:03:12 PM EST: PROCEDURE INFORMATION: Exam: CTA Head With Contrast, Arteriography Exam date and time: 03/08/2022 8:24 PM Age: 27 years old Clinical indication: Stroke-like symptoms; Dizziness/giddiness and other: L neck pain; Left upper extremity numbness/paresthesia; Additional info: L neck pain, dizziness TECHNIQUE: Imaging protocol: Computed tomographic angiography of the head with contrast. Exam focused on the arteries. 3D rendering (Not supervised by radiologist): MIP and/or 3D reconstructed images were created by the technologist. Radiation optimization: All CT scans at this facility use at least one of these dose optimization techniques: automated exposure control; mA and/or kV adjustment per patient size (includes targeted exams where dose is matched to clinical indication); or iterative reconstruction. Contrast material: OMNIPAQUE 350; Contrast volume: 85 ml; Contrast route: INTRAVENOUS (IV); COMPARISON: CT HEAD WO 02/26/2022 2:01 PM FINDINGS: ANTERIOR CIRCULATION: Right internal carotid artery: Intracranial segment is patent with no significant stenosis. No aneurysm. Right middle cerebral artery: No occlusion or significant stenosis. No aneurysm. Right anterior cerebral artery: No occlusion or significant stenosis. No aneurysm. Left internal carotid artery: Intracranial segment is patent with no significant stenosis. No aneurysm. Left middle cerebral artery: No occlusion or significant stenosis. No aneurysm. Left anterior cerebral artery: No occlusion or significant stenosis. No aneurysm. POSTERIOR CIRCULATION: Right vertebral artery: No occlusion or significant stenosis. No aneurysm. Left vertebral artery: No occlusion or significant stenosis. No aneurysm. Basilar artery: No occlusion or significant stenosis. No aneurysm. Right posterior cerebral artery: origin of the right posterior cerebral artery is a common developmental variant and there is no occlusion or significant stenosis. No aneurysm. Left posterior cerebral artery: No occlusion or significant stenosis. No aneurysm. Brain: No intracranial mass, acute infarct or recent hemorrhage detected. Cerebral ventricles: No midline shift or hydrocephalus. Mastoid air cells: Grossly clear bilaterally. Paranasal sinuses: Grossly clear throughout. Bones/joints: No acute fracture. Soft tissues: Unremarkable. IMPRESSION: No large vessel stenosis or occlusion detected involving the major branches of the anterior or posterior intracranial circulation. PROCEDURE INFORMATION: Exam: CTA Neck With Contrast Exam date and time: 03/08/2022 8:24 PM Age: 27 years old Clinical indication: Stroke-like symptoms; Dizziness/giddiness and other: L neck pain; Left upper extremity numbness/paresthesia; Additional info: L neck pain, dizziness TECHNIQUE: Imaging protocol: Computed tomographic angiography of the neck with contrast. 3D rendering (Not supervised by radiologist): MIP and/or 3D reconstructed images were created by the technologist. Radiation optimization: All CT scans at this facility use at least one of these dose optimization techniques: automated exposure control; mA and/or kV adjustment per patient size (includes targeted exams where dose is matched to clinical indication); or iterative reconstruction. Contrast material: OMNIPAQUE 350; Contrast volume: 85 ml; Contrast route: INTRAVENOUS (IV); COMPARISON: CT HEAD WO 02/26/2022 2:01 PM FINDINGS: Right common carotid artery: No stenosis. No dissection or occlusion. Right internal carotid artery: No stenosis of the extracranial segment. No dissection or occlusion. Right external carotid artery: No occlusion or stenosis of the origin. Left common carotid artery: No stenosis. No dissection or occlusion. Left internal carotid artery: No stenosis of the extracranial segment. No dissection or occlusion. Left external carotid artery: No occlusion or stenosis of the origin. Right vertebral artery: No stenosis. No dissection or occlusion. Left vertebral artery: No stenosis. No dissection or occlusion. Soft tissues: Normal. No significant soft tissue swelling. Bones/joints: No acute fracture. IMPRESSION: No evidence of 50% or greater stenosis involving the cervical segments of the right or left internal carotid arteries by NASCET criteria. REFERENCES: NASCET CRITERIA. The degree of stenosis in the cervical segment of the internal carotid artery is based on NASCET criteria. Normal is no stenosis. Mild is less than 50% stenosis. Moderate is 50-69% stenosis. Severe is 70% to 99% stenosis. Total occlusion is no detectable patent lumen. Dictated and Authenticated by: George Garcia MD. Ordering:MITZI Woodson MD
--- NOTE | 2022-03-08 21:14 | DI.VRAD_ITS ---
PROCEDURE INFORMATION: Exam: XR Chest Exam date and time: 03/08/2022 8:46 PM Age: 27 years old Clinical indication: Other: L neck pain, dizziness TECHNIQUE: Imaging protocol: Radiologic exam of the chest. Views: 2 views. COMPARISON: CT BRAIN NECK CTA 03/08/2022 8:24 PM FINDINGS: Lungs: Lungs are clear throughout with no mass or consolidation detected. Pleural spaces: No pneumothorax or pleural effusion detected. Heart/Mediastinum: Heart size is normal and vessel margins are sharply defined. Bones/joints: No acute osseous lesions are detected. IMPRESSION: No acute findings. Dictated and Authenticated by: George Garcia MD. Ordering:MITZI Woodson MD
[2022-03-08 21:30] LABS: *AMPHETAMINES SCREEN URINE Negative (Negative); *BARBITURATES SCREEN URINE Negative (Negative); *BENZODIAZEPINES SCREEN URINE Negative (Negative); Cannabinoids THC Negative (Negative); Cocaine Screen,Urine Negative (Negative); METHADONE URINE SCREEN Negative (Negative); OPIATES URINE SCREEN Negative (Negative)
[2022-03-08 21:34] LABS: Tricyclic Antidepressants Negative (Negative)
[2022-03-08 22:06] LABS: COVID-19 PCR Negative (Negative); Influenza A PCR Negative (Negative); Influenza B PCR Negative (Negative); RSV PCR Negative (Negative)
[2022-03-08 22:07] LABS: Source Nasopharynx
== END 2022-03-08 21:49 | disposition home or self-care (01) ==
PROVIDERS: Emergency Provider Physician Assistant; PCP Physician Assistant
DX: R20.2 Paresthesia of skin (principal); M54.2 Cervicalgia; Z20.822 Contact with and (suspected) exposure to COVID-19
CPT/HCPCS: 36415; 70496; 70498; 80053; 80307; 87637; 93005; 99285; 71046; 80320; 83735; 84443; 84484; 85025; 85610; 85730; 93010; J3490

== ENCOUNTER 2022-08-05 08:00 | Outpatient (CLI) | payer BC, SELFPAY ==
[2022-08-05 09:31] LABS: Anion Gap 5.5 mmol/L (3-11); BUN 16 mg/dL (7-18); CO2 31.5 mmol/L (21.0-32.0); CREATININE 1.3 mg/dL (0.70-1.30); Calcium 8.9 mg/dL (8.5-10.1); Chloride 104 mmol/L (98-107); Estimated GFR 76.74 (mL/min/1.73m2); Folate 9.4 ng/mL (8.6-20.0); Glucose 102 mg/dL (74-106); Potassium 4.6 mmol/L (3.5-5.1); Sodium 141 mmol/L (136-145); Vitamin B12 538 pg/mL (193-986)
== END 2022-08-05 08:01 | disposition home or self-care (01) ==
LOC: LBO 08:00
PROVIDERS: PCP Nurse Practitioner Family; Visit Provider Psychiatry & Neurology Neurology
DX: R20.2 Paresthesia of skin (principal); R51.9 Headache, unspecified; G62.9 Polyneuropathy, unspecified; R71.8 Other abnormality of red blood cells; R79.89 Other specified abnormal findings of blood chemistry
CPT/HCPCS: 36415; 80048; 82607; 82746

== ENCOUNTER 2022-08-18 02:26 | Outpatient (CLI) | payer BC, SELFPAY ==
--- NOTE | 2022-08-18 07:45 | DI.MRI_ITS ---
Exam(s) MR BRAIN WO EXAM: MR BRAIN WO CLINICAL HISTORY: L arm parathesia, ? MS, chronic headache, R20.2, R51.9, G89.29 TECHNIQUE: Multiplanar multisequence MRI of the brain was performed. COMPARISON: CT CT HEAD WO from 02/26/[address] BRAIN NECK CTA from 03/08/2022 FINDINGS: VENTRICLES AND EXTRA AXIAL SPACES: Normal in size and morphology for the patient's age. MIDLINE SHIFT: None. CEREBRAL PARENCHYMA: No focus of restricted diffusion to suggest acute infarct. No space-occupying le marilyn identified. There is a small prominent perivascular space on the right. HEMORRHAGE: None. BRAINSTEM/CEREBELLUM: Normal. CALVARIUM: Normal. VISUALIZED PARANASAL SINUSES/MASTOIDS:There is very mild ethmoid sinus disease. The remaining visual ized paranasal sinuses and mastoid air cells are clear. [place]: Normal flow void. [place]: Unremarkable. OTHER FINDINGS: None. IMPRESSION: Unremarkable MRI of the brain. DATA REPOSITORY:
== END 2022-08-18 02:46 ==
PROVIDERS: PCP Nurse Practitioner Family; Visit Provider Psychiatry & Neurology Neurology
DX: G89.29 Other chronic pain (principal); R20.2 Paresthesia of skin; R51.9 Headache, unspecified
CPT/HCPCS: 70551

== ENCOUNTER 2022-08-24 14:45 | Outpatient (REF) | payer BC, SELFPAY ==
[2022-08-24 15:50] LABS: Abs Immature Grans 0.02 10^3/uL (0.0-0.06); Absolute Basophil Count 0.03 10^3/uL (0.0-0.2); Absolute Eosinophil Count 0.56 10^3/uL (0.0-0.7); Absolute Lymphocyte Count 1.92 10^3/uL (1.2-3.4); Absolute Monocyte Count 0.47 10^3/uL (0.1-0.8); Absolute Neutrophil Count 3.41 10^3/uL (1.2-6.7); Basophils % 0.5; Eosinophils % 8.7; HCT 46.6 % (40.0-50.0); HGB 15.7 g/dL (13.5-17.5); Immature Grans % 0.3; MCH 32.6 pg (27.0-33.0); MCHC 33.7 % (32.0-36.0); MCV 97 fL (80-95); Monocytes % 7.3; Neutrophils % 53.2; Platelet Count 240 10^3/uL (130-400); RBC 4.81 10^6/uL (4.36-5.78); RDW 11.4 % (11.8-14.1); RDW-SD 41.1 fL; WBC 6.41 10^3/uL (4.4-10.8)
[2022-08-24 16:30] LABS: ALT 52 U/L (16-63); AST 30 U/L (15-37); Albumin 4.7 g/dL (3.4-5.0); Alkaline Phosphatase 60 U/L (46-116); Anion Gap 9.6 mmol/L (3-11); BUN 16 mg/dL (7-18); Bilirubin, Total 0.6 mg/dL (0.2-1.0); CO2 28.4 mmol/L (21.0-32.0); CREATININE 1.4 mg/dL (0.70-1.30); Calcium 9.3 mg/dL (8.5-10.1); Chloride 102 mmol/L (98-107); Estimated GFR 70.21 (mL/min/1.73m2); Glucose 95 mg/dL (74-106); Lipase 40 U/L (16-77); Potassium 4.4 mmol/L (3.5-5.1); Sodium 140 mmol/L (136-145)
== END 2022-08-24 14:46 | disposition home or self-care (01) ==
LOC: LBN 14:45
PROVIDERS: PCP Nurse Practitioner Family; Visit Provider Family Medicine
DX: R10.12 Left upper quadrant pain (principal)
CPT/HCPCS: 80053; 83690; 85025

== ENCOUNTER 2022-09-28 08:26 | Outpatient (CLI) | payer BC, SELFPAY ==
[2022-09-28 09:11] VITALS: BP 122/80; PULSE 69; RESP 16; TEMP 36.5; O2SAT 98
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
[2022-09-28 09:33] VITALS: BMI 25.3
[2022-09-28 09:39] VITALS: BP 118/91; PULSE 59; RESP 16; TEMP 36.7; O2SAT 100
[2022-09-28 10:06] VITALS: BP 112/70; PULSE 50; RESP 16; TEMP 36.8; O2SAT 96
--- NOTE | 2022-09-28 10:36 | W.ANESPROC ---
Lumbar Puncture Date Performed: 09/28/22 Procedure Time: 10:00 Requesting Provider: Tracee Mclean Procedure Location: Day Surgery Unit Standard Monitors Applied: Blood Pressure, SpO2 and See EMR for corresponding vital signs Patient Position: Left Lateral Decubitus Timeout Performed: Yes Sedation Given (Indicate Dose Given): No Sedation given Patient Mental Status: Awake Sterility: Hand Hygiene, Surgical Cap, Surgical Mask, Sterile Gloves, Sterile Drape/Sheet and Chlorhexidine Placement Site: L3-L4 Interspace Spinal Needle Type: Valarie 25 Gauge Needle Length: 3.5 Inch Lumbar Puncture Procedure: Site Prepped, Sterile Drape Placed, 1% Lidocaine to skin and subcutaneous tissue with 25G needle, Spinal Needle Placed, Negative Heme, Positive CSF Flow, CSF Specimen placed into Tubes in Sequential Order and Specimen Labeled, Sent to Lab Ultrasound: Not Used Opening CSF Pressure (cmH2O): 14 Paresthesia: None Number of Previous Attempts by Other Providers: 0 Number of Attempts (See previous attempts in note section): 1 Procedure Tolerated: No Complications and Patient tolerated well Procedure Outcome: Successful Procedure Comment:: Performed By: Jovanni Porter
[2022-09-28 10:37] LABS: Glucose (CSF) 60 mg/dL (40-70); Total Protein (CSF) 38 mg/dL (15-45)
--- NOTE | 2022-09-28 10:58 | W.ANESPOSTOP ---
Postoperative Evaluation Date, Time and Location Date Performed: 09/28/22 Time Performed: 10:32 Patient Location: Day Surgery Unit Vital Signs Most Recent Imported Vital Signs: Most Recent Vital Signs Temp Pulse Resp BP Pulse Ox 36.8 C 50 L 16 112/70 96 09/28/22 10:06 09/28/22 10:06 09/28/22 10:06 09/28/22 10:06 09/28/22 10:06 Pain Score Most Recent Pain Score: Most Recent Pain Score Pain Level 0 09/28/22 10:06 Assessment Mental Status: Awake (Alert & Oriented to Patient Baseline) Airway and Respiratory Function: Patent airway with normal (patient baseline) respiratory exam Cardiovascular Function: Hemodynamically Stable Hydration Status: Adequately Hydrated Nausea & Vomiting: No Nausea or Vomiting Pain: Pt. Denies Any Pain Peripheral Nerve Block: Patient did not receive a nerve block
[2022-09-28 11:15] LABS: Clarity Clear; RBC 0 /mm3 (0-5); Tube # 4; WBC 2 /uL (0-5); Xanthochromia Absent
== END 2022-09-28 10:38 | disposition home or self-care (01) ==
PROVIDERS: Psychiatry & Neurology Neurology; PCP Nurse Practitioner Family; Visit Provider Nurse Anesthetist, Certified Registered
PROC: 009U3ZZ Drainage of Spinal Canal, Percutaneous Approach (ICD-10-PCS; CPT 62270; principal; 2022-09-28 09:15)
DX: G89.29 Other chronic pain (principal); R51.9 Headache, unspecified
CPT/HCPCS: 62270; 82945; 89050; 89051; 84157; 87070; 87205

== ENCOUNTER → 2022-12-03 03:09 | Outpatient (CLI) | payer BC, SELFPAY ==
--- NOTE | 2022-12-03 10:39 | DI.US_ITS ---
APPROVED REPORT EXAM: Comprehensive 2D, Doppler, and color-flow Echocardiogram Patient Location: Out-Patient Clinical Research Manager: Bibi Adams RDCS (AE) Indications: Bicuspid aortic valve, Chest pain, Dizziness Other Information Study Quality: Good Conclusion The left ventricular wall thickness and chamber size. Ejection fraction is 65%. Wall motion is norm al Normal right ventricular size and systolic function Both atria are normal in size Aortic valve is bicuspid with trace regurgitation Normal aortic root and ascending aorta Wall motion Left Ventricle The left ventricle is normal size. The left ventricular systolic function is normal. The left ventric ular ejection fraction is within the normal range. There is normal left ventricular wall thickness. T here is normal LV segmental wall motion. There is no ventricular septal defect visualized. LVEF is 65 %. Right Ventricle The right ventricle is normal size. The right ventricular systolic function is normal. Atria The left atrium size is normal. The right atrium size is normal. The interatrial septum is intact wit h no evidence for an atrial septal defect. Aortic Valve Aortic valve is bicuspid. There is no aortic valvular stenosis. Traceaortic regurgitation. There is a n eccentric jet of aortic insufficiency directed against the anterior mitral leaflet. Mitral Valve The mitral valve is normal in structure. No evidence of mitral valve stenosis. Trace mitral regurgita tion. Tricuspid Valve The tricuspid valve is normal in structure. There is no tricuspid valve stenosis. Trace tricuspid reg urgitation. Pulmonic Valve The pulmonary valve is normal in structure. There is no pulmonic valvular stenosis. Trace pulmonic re gurgitation. Great Vessels The aortic root is normal in size. The ascending aorta is normal in size. Aortic arch is normal in ca liber. IVC is normal in size and collapses >50% with inspiration. Pericardium There is no pericardial effusion. 2D Dimensions IVSD d PLAX 0.86 cm M: 0.6-1.2 Ao Root d 3.03 cm M: 3.1 - 3.7 LVPW d PLAX 0.86 cm M: 0.6 - 1.2 Ao Asc Diam d 3.27 cm M: 2.6 - 3.4 LVID d PLAX 5.17 cm M: 4.2 - 5.8 LVDs 3.52 cm M: 2.5 - 4.0 LV EF Teichholz 59.6 % FS 31.88 % LV EDV (Teich) 127.7 mL LV ESV (Teich) 51.6 mL M-Mode TAPSE 2.56 cm (M/F) >1.7 Auto EF LV EDV A4C 134.1 mL LV EDV A2C 160.1 mL LV EDV BP 148.6 mL LV ESV A4C 59.0 mL LV ESV A2C 66.1 mL LV ESV BP 62.6 mL LVEF(%) A4C 56.0 % LVEF(%) A2C 58.7 % LVEF(%) BP 57.8 % LV SV A4C 75.0 ml LV SV A2C 93.9 ml LV SV BP 85.9 ml LV CO A4C 3.6 L/min LV CO A2C 4.4 L/min LV CO BP 4.0 L/min HR A4C 47.87 BPM HR A2C 46.94 BPM LV EDV Index (BP) LA Volume LA Length A4C 5.1 cm LA Length A2C 4.5 cm LA Area A4C s 15.34 cm2 LA Area A2C s 15.91 cm2 LA Vol A4C A-L 39.44 mL LA Vol A2C A-L 47.86 mL LA Vol Biplane A-L 46.1 mL LA Vol/BSA A4C A-L LA Vol/BSA A2C A-L LA Vol/BSA BP A-L 21.5 mL/m2 LA Vol A4C MOD 34.5 mL LA Vol A2C MOD 44.4 mL LA Vol BP MOD 41.4 mL RA Volume RA Area A4C 13.6 cm2 RA ESV A4C (A-L) 36.4mL RA Vol/BSA A4C A-L RA Length A4C 4.3 cm RA ESV A4C (MOD) 36.0mL LV Diastology MV E' medial 0.101 (>0.07 m/s) MV E Vmax 0.98 (0.4-1.3 m/s) MV E/E' MED 9.65 (<14) MV A Vmax 0.45 (0.4-1.3 m/s) MV E' lateral 0.163 (>0.1 m/s) E/A Ratio 2.2 MV E/E' LAT 6.00 (<14) MV E' Average 0.132 m/s MV E/E'(average) 7.39 Aortic Valve AoV Vmax 1.99 m/s LVOT Vmax 0.84 m/s AoV Peak Grad 38.5 mmHg LVOT Peak Grad 2.8 mmHg AoV Area (Vmax) 1.83 cm2 LVOT VTI 0.231 m AoV VTI 0.553 m LVOT Mean Grad 1.7 mmHg AoV Mean Pablo. 1.42 m/s LVOT SV 100.46 mL AoV Mean Grad 9.3 mmHg LVOT Diam s 2.35 cm AoV Area (VTI) 1.82 cm2 AV Regurg Peak Gr. 61.10 mmHg Velocity Ratio 0.42 AR Decel [place] 1.9m/sec2 AR DT 2074 msec AR PHT 601 msec AR Vmax 3.91 m/s Mitral Valve MV DT 187 (160-240 msec) MV Vmax TIPS 0.95 m/s MV Mean Grad 1.4 (<2mmHg) MV VTI 0.312 m Pulmonary Valve PV Vmax 0.93 (0.5-1.5 m/s) RVOT Vmax 0.76 m/s PV Peak Grad 3.4 mmHg RVOT Peak Gr. 2.3 mmHg PV Mean Pablo 0.67 m/s RVOT VTI 0.188 m PV Mean Grad 2.0 mmHg RVOT Mean Gr. 1.3 mmHg Tricuspid Valve RA Pressure 3.00 mmHg TR Vmax 1.88 m/s TV S' 0.11 m/s TR Peak Grad 14.0 mmHg RVSP (TR) 17.1 mmHg
== END ==
PROVIDERS: PCP Nurse Practitioner Family; Visit Provider Nurse Practitioner Family
DX: R07.9 Chest pain, unspecified (principal)
CPT/HCPCS: 93306

== ENCOUNTER 2022-12-07 08:51 | Outpatient (CLI) | payer BC, SELFPAY ==
--- NOTE | 2022-12-07 08:45 | RT.EKG_ITS ---
APPROVED REPORT Exam: Resting ECG Reason for Exam: bicuspid Aortic valve Patient Location: O HR:85 bpm ECG Measurements Heart Rate 85 AXIS NJ 161 P 71 QRSd 80 QRS 69 QT 356 T 44 QTc 424 Conclusion Sinus rhythm...normal P axis, V-rate 50- 99 Normal Electrocardiogram
== END 2022-12-07 08:52 | disposition home or self-care (01) ==
LOC: DI.CARD 08:52
PROVIDERS: PCP Nurse Practitioner Family; Visit Provider Internal Medicine Cardiovascular Disease
DX: Q23.1 Congenital insufficiency of aortic valve (principal)
CPT/HCPCS: 93010

== ENCOUNTER 2023-05-21 13:54 | Outpatient (REF) | payer BC, SELFPAY ==
[2023-05-21 15:41] LABS: Bacteria Negative HPF (Negative); C & S Indicated? No; Casts Negative LPF (Negative); Crystals Few Amorphous HPF (Negative); Epithelial Cells Rare HPF (Negative); Mucus Negative (Negative); RBC 0-2 HPF (0-2); WBC 0-2 HPF (0-5)
[2023-05-22 10:55] LABS: HIV-1/2 Ag & Ab Screen Negative (Negative)
[2023-05-24 10:23] LABS: Hepatitis C Ab w Rflx HCV PCR Negative (Negative)
== END 2023-05-21 13:55 | disposition home or self-care (01) ==
LOC: NCHCN 13:54
PROVIDERS: PCP Nurse Practitioner Family; Visit Provider Student in an Organized Health Care Education/Training Program
DX: Z00.00 Encounter for general adult medical examination without abnormal findings (principal); D75.89 Other specified diseases of blood and blood-forming organs; Z11.4 Encounter for screening for human immunodeficiency virus [HIV]; Z11.59 Encounter for screening for other viral diseases
CPT/HCPCS: 86803; 87389; 81015; 85025

== ENCOUNTER 2023-05-24 11:19 | Outpatient (CLI) | payer BC, SELFPAY ==
[2023-05-24 11:51] LABS: Abs Immature Grans 0.02 10^3/uL (0.0-0.06); Absolute Basophil Count 0.03 10^3/uL (0.0-0.2); Absolute Eosinophil Count 0.57 10^3/uL (0.0-0.7); Absolute Lymphocyte Count 1.87 10^3/uL (1.2-3.4); Absolute Monocyte Count 0.52 10^3/uL (0.1-0.8); Absolute Neutrophil Count 2.99 10^3/uL (1.2-6.7); Basophils % 0.5; Eosinophils % 9.5; HCT 44.8 % (40.0-50.0); HGB 15.2 g/dL (13.5-17.5); Immature Grans % 0.3; Lymphocytes % 31.2; MCH 32.5 pg (27.0-33.0); MCHC 33.9 % (32.0-36.0); MCV 96 fL (80-95); MPV 10.4 fL (8.0-11.0); Monocytes % 8.7; Neutrophils % 49.8; Platelet Count 225 10^3/uL (130-400); RBC 4.67 10^6/uL (4.36-5.78); RDW 11.9 % (11.8-14.1); RDW-SD 41.5 fL
== END 2023-05-24 11:20 | disposition home or self-care (01) ==
LOC: LBO 11:21
PROVIDERS: PCP Nurse Practitioner Family; Visit Provider Student in an Organized Health Care Education/Training Program
DX: D75.89 Other specified diseases of blood and blood-forming organs (principal)
CPT/HCPCS: 36415; 85025

== ENCOUNTER 2023-07-28 13:58 | Outpatient (CLI) | payer BC, SELFPAY ==
[2023-07-28 15:11] LABS: ESR 1 mm/hr (0-15)
[2023-07-28 15:12] LABS: Abs Immature Grans 0.05 10^3/uL (0.0-0.06); Absolute Basophil Count 0.03 10^3/uL (0.0-0.2); Absolute Eosinophil Count 0.23 10^3/uL (0.0-0.7); Absolute Lymphocyte Count 3.05 10^3/uL (1.2-3.4); Absolute Monocyte Count 0.48 10^3/uL (0.1-0.8); Absolute Neutrophil Count 2.45 10^3/uL (1.2-6.7); Basophils % 0.5 %; Eosinophils % 3.7 %; HCT 40.9 % (40.0-50.0); HGB 13.8 g/dL (13.5-17.5); Immature Grans % 0.8 %; Lymphocytes % 48.5 %; MCH 32.2 pg (27.0-33.0); MCHC 33.7 % (32.0-36.0); MCV 96 fL (80-95); MPV 9.5 fL (8.0-11.0); Monocytes % 7.6 %; Neutrophils % 38.9 %; Platelet Count 233 10^3/uL (130-400); RBC 4.28 10^6/uL (4.36-5.78); RDW 12.2 % (11.8-14.1); WBC 6.29 10^3/uL (4.4-10.8)
[2023-07-28 16:14] LABS: ALT 71 U/L (16-63); AST 39 U/L (15-37); Alkaline Phosphatase 66 U/L (46-116); Anion Gap 8.2 mmol/L (3-11); BUN 13 mg/dL (7-18); Bilirubin, Total 0.7 mg/dL (0.2-1.0); CO2 29.8 mmol/L (21.0-32.0); CREATININE 1.4 mg/dL (0.70-1.30); Calcium 8.8 mg/dL (8.5-10.1); Chloride 103 mmol/L (98-107); Estimated GFR 69.77 (mL/min/1.73m2); Glucose 93 mg/dL (74-106); Potassium 4.3 mmol/L (3.5-5.1); Sodium 141 mmol/L (136-145); Total Protein 7.5 g/dL (6.4-8.2)
[2023-07-28 17:54] LABS: Iron 68 ug/dL (65-175); Total Iron Binding Capacity 283 ug/dL (250-450); Transferrin Sat 24 % (20-55)
[2023-07-28 19:52] LABS: Ferritin 225 ng/mL (26-388)
[2023-07-30 08:46] LABS: Transferrin 231 mg/dL (201-352)
[2023-08-10 12:35] LABS: Misc Referral (MAYO) See Comments
== END 2023-07-28 13:59 | disposition home or self-care (01) ==
LOC: LBO 13:59
PROVIDERS: PCP Student in an Organized Health Care Education/Training Program; Visit Provider Student in an Organized Health Care Education/Training Program
DX: R10.13 Epigastric pain (principal); R74.01 Elevation of levels of liver transaminase levels
CPT/HCPCS: 36415; 80053; 83519; 85652; 82728; 83540; 83550; 84466; 85025

== ENCOUNTER 2023-10-20 11:15 | Outpatient (CLI) | payer BC, SELFPAY ==
--- NOTE | 2023-10-20 | DI.MRI_ITS ---
Exam(s) MR BRAIN WO/W EXAM: MR BRAIN WO/W CLINICAL HISTORY: UNILATERAL RIGHT SIDED HEADACHE, R51.9. TECHNIQUE: Multiplanar multisequence MRI of the brain was performed. CONTRAST MATERIAL: IV Contrast: 20 ML of Dotarem contrast administered. COMPARISON: MR MR BRAIN WO from 08/18/2022 FINDINGS: VENTRICLES AND EXTRA AXIAL SPACES: Normal in size and morphology for the patient's age. HEMORRHAGE: None. CEREBRAL PARENCHYMA: No focus of restricted diffusion to suggest acute infarct. No space-occupying le marilyn identified. MIDLINE SHIFT: None. BRAINSTEM/CEREBELLUM: Normal. CALVARIUM: Normal. ENHANCEMENT: No suspicious enhancement identified. VISUALIZED PARANASAL SINUSES/MASTOIDS: Mild ethmoid sinus mucosal thickening. Venous right dimension a stent L clear. Orbits: Unremarkable. Pituitary: Normal. Vasculature: Normal flow voids. IMPRESSION: Unremarkable MRI of the brain. DATA REPOSITORY:
[2023-10-20] MEDS: Normal Saline Flush 10 ML SYR IVP (11:44)
[2023-10-20] MEDS: Gadoterate meglumine 20 ML SYRINGE IVP (11:45)
== END 2023-10-20 11:35 ==
LOC: DI 11:16
PROVIDERS: PCP Student in an Organized Health Care Education/Training Program; Visit Provider Student in an Organized Health Care Education/Training Program
DX: R51.9 Headache, unspecified (principal)
CPT/HCPCS: 70553

== ENCOUNTER 2023-10-23 14:45 | Emergency (ER) | payer BC, SELFPAY ==
--- NOTE | 2023-10-23 14:45 | DI.RAD_ITS ---
Exam(s) XR HAND RT COMPLETE XR WRIST RT COMPLETE EXAM: XR WRIST RT COMPLETE CLINICAL HISTORY: Right wrist pain. TECHNIQUE: 2D digital imaging was performed. Three views of the wrist and hand. COMPARISON: CR,XR XR HAND RT COMPLETE from 10/23/2023 FINDINGS: BONES: No acute fracture is present. No bony destructive lesion is seen. JOINTS: The carpal bones are normally aligned. SOFT TISSUE: Normal. IMPRESSION: Unremarkable radiographs of the right wrist and hand. DATA REPOSITORY: RADIATION DOSE DELIVERED:
--- NOTE | 2023-10-23 14:45 | DI.RAD_ITS ---
Exam(s) XR ANKLE LT COMPLETE EXAM: XR ANKLE LT COMPLETE CLINICAL HISTORY: Left ankle pain TECHNIQUE: 2D digital imaging was performed. Three views. COMPARISON: No exams were available for comparison FINDINGS: BONES: Avulsion fracture medial malleolus. No bony destructive lesion is seen. JOINTS:The ankle mortise is normally aligned. SOFT TISSUE: Normal. IMPRESSION: Avulsion fracture medial malleolus. DATA REPOSITORY: RADIATION DOSE DELIVERED:
--- NOTE | 2023-10-23 14:45 | DI.RAD_ITS ---
Exam(s) XR KNEE LT 3V AP,LAT,ARTURO EXAM: XR KNEE LT 3V AP,LAT,ARTURO CLINICAL HISTORY: Knee pain. TECHNIQUE: 2D digital imaging was performed. Three views. COMPARISON: No exams were available for comparison FINDINGS: BONES: No acute fracture is present. No bony destructive lesion is seen. JOINTS: The knee is normally aligned. No joint effusion is seen. SOFT TISSUE: Normal. IMPRESSION: Normal radiographs of the left knee. DATA REPOSITORY: RADIATION DOSE DELIVERED:
[2023-10-23 14:48] VITALS: BP 129/73; PULSE 78; RESP 20; TEMP 36.9; O2SAT 99
--- NOTE | 2023-10-23 14:56 | DI.RAD_ITS ---
Exam(s) XR SHOULDER RT COMPLETE 2+V EXAM: XR SHOULDER RT COMPLETE 2+V CLINICAL HISTORY: Right shoulder pain. TECHNIQUE: 2D digital imaging was performed. Five views. COMPARISON: No exams were available for comparison FINDINGS: BONES: No acute fracture is present. No bony destructive lesion is seen. JOINTS: No dislocation present. SOFT TISSUE: Air bubble in the subcutaneous fat near the inferior aspect of the deltoid muscle. IMPRESSION: No acute bony abnormality. DATA REPOSITORY: RADIATION DOSE DELIVERED:
[2023-10-23] MEDS: Acetaminophen 500 MG TAB 1000 MG PO (15:17)
[2023-10-23] MEDS: Ibuprofen 600 MG TAB PO (15:17)
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
--- NOTE | 2023-10-23 16:23 | DI.VRAD_ITS ---
PROCEDURE INFORMATION: Exam: XR Left Knee Exam date and time: 10/23/2023 3:49 PM Age: 28 years old Clinical indication: Left; Patient HX: Right knee pain TECHNIQUE: Imaging protocol: Radiologic exam of the left knee. Views: 3 views. COMPARISON: No relevant prior studies available. FINDINGS: Bones/joints: Normal. Soft tissues: Normal. IMPRESSION: Unremarkable exam. Dictated and Authenticated by: Elsa Bean MD. Ordering:AGUS Aquino MD
--- NOTE | 2023-10-23 16:24 | DI.VRAD_ITS ---
PROCEDURE INFORMATION: Exam: XR Left Ankle Exam date and time: 10/23/2023 3:53 PM Age: 28 years old Clinical indication: Patient HX: Left ankle pain TECHNIQUE: Imaging protocol: Radiologic exam of the left ankle. Views: 3 or more views. COMPARISON: CR XR KNEE LT 3V AP,LAT,ARTURO 10/23/2023 3:49 PM FINDINGS: Bones/joints: Normal. Soft tissues: Normal. IMPRESSION: Unremarkable exam. Dictated and Authenticated by: Elsa Bean MD. Ordering:AGUS Aquino MD
--- NOTE | 2023-10-23 16:25 | DI.VRAD_ITS ---
PROCEDURE INFORMATION: Exam: XR Right Wrist Exam date and time: 10/23/2023 3:58 PM Age: 28 years old Clinical indication: Pain; Patient HX: Right wrist injury TECHNIQUE: Imaging protocol: Radiologic exam of the right wrist. Views: 3 or more views. COMPARISON: CR XR HAND RT COMPLETE 10/23/2023 3:57 PM FINDINGS: Bones/joints: Normal. Soft tissues: Normal. IMPRESSION: No evidence for fracture. Dictated and Authenticated by: Elsa Bean MD. Ordering:AGUS Aquino MD
--- NOTE | 2023-10-23 16:25 | DI.VRAD_ITS ---
PROCEDURE INFORMATION: Exam: XR Right Hand Exam date and time: 10/23/2023 3:57 PM Age: 28 years old Clinical indication: Patient HX: Right hand pain TECHNIQUE: Imaging protocol: Radiologic exam of the right hand. Views: 3 or more views. COMPARISON: No relevant prior studies available. FINDINGS: Bones/joints: Normal. Soft tissues: Normal. IMPRESSION: Unremarkable exam. Dictated and Authenticated by: Elsa Bean MD. Ordering:AGUS Aquino MD
--- NOTE | 2023-10-23 16:26 | DI.VRAD_ITS ---
PROCEDURE INFORMATION: Exam: XR Right Shoulder Exam date and time: 10/23/2023 4:01 PM Age: 28 years old Clinical indication: Patient HX: Right shoulder pain TECHNIQUE: Imaging protocol: Radiologic exam of the right shoulder. Views: 2 or more views. COMPARISON: CR XR CHEST 2V PA LATERAL 03/08/2022 8:46 PM FINDINGS: Bones/joints: Normal. Soft tissues: Normal. IMPRESSION: No evidence for fracture. Dictated and Authenticated by: Elsa Bean MD. Ordering:AGUS Aquino MD
[2023-10-23 16:55] VITALS: BP 130/64; PULSE 62; RESP 20; O2SAT 99
== END 2023-10-23 17:26 | disposition home or self-care (01) ==
LOC: ER 17:03
PROVIDERS: Emergency Provider Emergency Medicine; PCP Student in an Organized Health Care Education/Training Program
DX: S40.211A Abrasion of right shoulder, initial encounter (principal); S50.811A Abrasion of right forearm, initial encounter; S50.311A Abrasion of right elbow, initial encounter; S80.212A Abrasion, left knee, initial encounter; S82.55XA Nondisplaced fracture of medial malleolus of left tibia, initial encounter for closed fracture; F17.290 Nicotine dependence, other tobacco product, uncomplicated; Z23 Encounter for immunization; V28.49XA Other motorcycle driver injured in noncollision transport accident in traffic accident, initial encounter
CPT/HCPCS: 73562; 90715; 73030; 73110; 73130; 73610

== ENCOUNTER → 2023-10-27 18:58 | Emergency (ER) | payer BC, SELFPAY ==
[2023-10-27 18:59] VITALS: BP 115/75; PULSE 80; RESP 16; TEMP 36.3; O2SAT 96
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
== END | disposition home or self-care (01) ==
LOC: ER 19:44 → RED 19:50
PROVIDERS: Emergency Provider Registered Nurse Emergency; PCP Student in an Organized Health Care Education/Training Program
DX: S61.412A Laceration without foreign body of left hand, initial encounter (principal); W26.8XXA Contact with other sharp object(s), not elsewhere classified, initial encounter; Y93.G1 Activity, food preparation and clean up
CPT/HCPCS: 99282; 99283

== ENCOUNTER 2024-04-23 16:37 | Emergency (ER) | payer BC, SELFPAY ==
[2024-04-23 16:41] VITALS: BP 168/101; PULSE 75; RESP 20; TEMP 36.6; O2SAT 100
[2024-04-23 16:44] VITALS: BP 168/101; PULSE 75; RESP 20; TEMP 36.6; O2SAT 100
--- NOTE | 2024-04-23 16:45 | RT.EKG_ITS ---
APPROVED REPORT Exam: Resting ECG Reason for Exam: epigastric pain Patient Location: E HR:56 bpm ECG Measurements Heart Rate 56 AXIS MT 156 P 50 QRSd 84 QRS 67 QT 407 T -15 QTc 395 Conclusion Sinus bradycardia, rate 56 No interval abnormalities T wave inversion, III, aVf, new from priors No STEMI
--- NOTE | 2024-04-23 16:45 | DI.CT_ITS ---
Exam(s) CT THORAX ABD/PEL CTA EXAM: CT THORAX ABD/PEL CTA CLINICAL HISTORY: epigastric pain with radiation to back. TECHNIQUE: Imaging Protocol: Axial CT angiography was performed with multi-slice acquisition and m ulti-planar and/or 3D reconstructions. CONTRAST MATERIAL: Intravenous: Omnipaque 350 Contrast volume:100 mL Oral: no COMPARISON: CT CT BRAIN NECK CTA from 03/08/2022 FINDINGS: CHEST: Pulmonary Arteries: No evidence of filling defect to suggest pulmonary emboli. Tracheobronchial tree: Patent where visualized. Mediastinum and Helen: No dominant adenopathy or fluid collection. Pulmonary parenchyma: No consolidation or dominant measurable mass. No architectural distortion. Pleura: No effusion or pneumothorax. Heart: The heart is not dilated. No coronary artery calcifications are seen. Aorta: Thoracic aorta non-dilated. Bones: Normal. Tubes, Catheters, and Lines: None ABDOMEN AND PELVIS: Abdomen: Celiac axis/mesenteric arteries: No evidence of occlusion or significant stenosis. Renal Arteries: No evidence of occlusion or significant stenosis. There is a single renal artery per fusing each kidney. Aorta: No evidence of occlusion or significant stenosis. No aneurysm or dissection. Pelvis: Iliac Arteries: No evidence of occlusion or significant stenosis. Common Femoral Arteries: No evidence of occlusion or significant stenosis. ABDOMEN: Liver: Normal density. No measurable mass. Portal, Superior Mesenteric, and Splenic Veins: Unremarkable. Gallbladder and Biliary Tract: No radiodense calculus or dilation. Pancreas: Normal density, no abnormal calcifications or inflammatory process. Spleen: Normal. Adrenals: No masses seen. Kidneys: Normal size, contour and axis. No radiodense stones or obstructive uropathy. No masses seen. Bowel: Mild thickening of proximal jejunal loops could indicate enteritis. No visible ulcer. No obs truction. Appendix is unremarkable. Peritoneal Cavity: No ascites, collection or mesenteric inflammatory response. Lymph Nodes: Within normal limits. Bones: Unremarkable. Soft Tissues: Unremarkable. PELVIS: Bladder: Symmetric distention, no gross wall thickening. Reproductive Organs: Unremarkable as visualized. Lymph Nodes: Within normal limits. Bones: Within normal limits. IMPRESSION: No evidence of pulmonary emboli or other vascular abnormality. Mild wall thickening of proximal jejunal loops could indicate enteritis. RADIATION DOSE DELIVERED: 886.9mGy.cm Total DLP DATA REPOSITORY: All CT scans at this facility are submitted to the National Radiology Data Registry (NRDR) Dose Index Registry (DIR) with the [employer] (ACR). RADIATION OPTIMIZATION: All CT scans at this facility use at least one of these dose optimization te chniques: automated exposure control; mA and/or kV adjustment per patient size (includes targeted exa ms where dose is matched to clinical indication); or iterative reconstruction.
[2024-04-23] MEDS: Ondansetron 4 MG/2 ML VIAL IVP (17:15)
[2024-04-23] MEDS: FAMOTIDINE 20 MG in Normal Saline 100 ML 400 MG IVPB (17:15)
[2024-04-23] MEDS: MORPHine 10 MG/ML VIAL 6 MG IVP (17:15)
[2024-04-23 17:28] LABS: Abs Immature Grans 0.04 10^3/uL (0.0-0.06); Absolute Basophil Count 0.06 10^3/uL (0.0-0.2); Absolute Eosinophil Count 0.72 10^3/uL (0.0-0.7); Absolute Lymphocyte Count 4.17 10^3/uL (1.2-3.4); Absolute Monocyte Count 0.64 10^3/uL (0.1-0.8); Absolute Neutrophil Count 3.99 10^3/uL (1.2-6.7); Basophils % 0.6 %; Eosinophils % 7.5 %; HCT 45.4 % (40.0-50.0); HGB 15.6 g/dL (13.5-17.5); Immature Grans % 0.4 %; Lymphocytes % 43.3 %; MCH 32.3 pg (27.0-33.0); MCHC 34.4 % (32.0-36.0); MCV 94 fL (80-95); Monocytes % 6.7 %; Neutrophils % 41.5 %; Platelet Count 249 10^3/uL (130-400); RBC 4.83 10^6/uL (4.36-5.78); RDW 11.7 % (11.8-14.1); RDW-SD 40.7 fL; WBC 9.62 10^3/uL (4.4-10.8)
[2024-04-23] MEDS: Normal Saline - Diluent 50 ML VIAL IJ (17:39)
[2024-04-23] MEDS: Omnipaque 350 MG/ML 100 ML BTL IJ (17:40)
[2024-04-23 17:45] LABS: ALT 87 U/L (16-63); AST 40 U/L (15-37); Albumin 4.7 g/dL (3.4-5.0); Alkaline Phosphatase 80 U/L (46-116); BUN 16 mg/dL (7-18); Bilirubin, Total 0.56 mg/dL (0.2-1.0); CREATININE 1.3 mg/dL (0.70-1.30); Calcium 9.7 mg/dL (8.5-10.1); Chloride 101 mmol/L (98-107); Estimated GFR 75.79 (mL/min/1.73m2); Glucose 94 mg/dL (74-106); Lipase 51 U/L (<78); Potassium 3.7 mmol/L (3.5-5.1); Sodium 143 mmol/L (136-145); Total Protein 8.4 g/dL (6.4-8.2)
[2024-04-23 17:59] LABS: Magnesium 1.9 mg/dL (1.8-2.4); Troponin I 5 ng/L (<or=76)
[2024-04-23 18:11] LABS: Bilirubin Negative (Negative); Blood Negative (Negative); Clarity Clear (Clear); Glucose Negative (Negative); Ketones Negative (Negative); Leukocyte Esterase Negative (Negative); Nitrite Negative (Negative); Urobilinogen 0.2 mg/dL (Up to 0.2); pH 6.5 (5-8)
--- NOTE | 2024-04-23 18:45 | RT.EKG_ITS ---
APPROVED REPORT Exam: Resting ECG Reason for Exam: chest pain Patient Location: E HR:54 bpm ECG Measurements Heart Rate 54 AXIS OR 159 P 17 QRSd 87 QRS 40 QT 414 T 27 QTc 395 Conclusion Sinus bradycardia...rate< 60 Normal [place]/Interval Previous T wave changes in inferior leads from earlier today resolved There are no significant changes compared to prior EKG performed on 12/07/2022 at 10:22.
--- NOTE | 2024-04-23 18:56 | DI.VRAD_ITS ---
PROCEDURE INFORMATION: Exam: CTA Chest With Contrast CTA Abdomen and Pelvis With Contrast Exam date and time: 04/23/2024 5:36 PM Age: 29 years old Clinical indication: Epigastric pain with radiation to back TECHNIQUE: Imaging protocol: Computed tomographic angiography of the chest with contrast. Exam focused on the arteries. Computed tomographic angiography of the abdomen and pelvis with contrast. Exam focused on the arteries. 3D rendering (Not supervised by radiologist): MIP and/or 3D reconstructed images were created by the technologist. Contrast material: 350; Contrast volume: 100 ml; Contrast route: INTRAVENOUS (IV); COMPARISON: CR XR CHEST 2V PA LATERAL 03/08/2022 8:46 PM FINDINGS: VASCULATURE: Pulmonary arteries: No evidence of acute pulmonary embolism. Aorta: Normal caliber thoracic / abdominal aorta without dissection or aneurysm. Celiac trunk and mesenteric arteries: No occlusion or significant stenosis. Renal arteries: No occlusion or significant stenosis. Right iliac arteries: No occlusion or significant stenosis. Left iliac arteries: No occlusion or significant stenosis. CHEST: Lungs: No acute alveolar or ground glass infiltrate. Pleural spaces: No pleural fluid collection. No pneumothorax. Heart: No right ventricular strain. No pericardial effusion. ABDOMEN AND PELVIS: Liver: No mass. Gallbladder and biliary ducts: Unremarkable. No calcified stones. No ductal dilation. Pancreas: Unremarkable. No mass. No ductal dilation. Spleen: Unremarkable. No splenomegaly. Adrenal glands: Unremarkable. No mass. Kidneys and ureters: No hydronephrosis. No calcified renal or ureteral stones. No perinephric stranding or perinephric fluid. Stomach and bowel: No generalized ileus or bowel obstruction. Mild wall thickening of the duodenum and a few proximal jejunal loops which may reflect a duodenitis / enteritis. Appendix: Normal appendix. Intraperitoneal space: No free air. No significant fluid collection. Urinary bladder: Unremarkable. No mass. Reproductive: Unremarkable as visualized. Lymph nodes: No enlarged lymph nodes. Bones/joints: Unremarkable for patient age. Soft tissues: Unremarkable. IMPRESSION: 1. Normal caliber thoracic / abdominal aorta without dissection or aneurysm. 2. No evidence of acute pulmonary embolism. 3. No acute pulmonary infiltrate or pleural fluid collection. 4. No generalized ileus or bowel obstruction. 5. Mild wall thickening of the duodenum and a few proximal jejunal loops which may reflect a duodenitis / enteritis. 6. Otherwise, no acute intra-abdominal or pelvic process. Dictated and Authenticated by: Abhishek Hernandez MD. Orderin Valerie Valenzuela MD
[2024-04-23 19:09] LABS: COVID-19 PCR Negative (Negative); Influenza A PCR Negative (Negative); Influenza B PCR Negative (Negative); RSV PCR Negative (Negative)
[2024-04-23 19:11] LABS: Source NASOPHARYNX
[2024-04-23 19:59] LABS: Troponin I 8 ng/L (<or=76)
[2024-04-23] MEDS: Omeprazole 20 MG CAPCR PO (20:23)
[2024-04-23 20:33] VITALS: BP 119/66; PULSE 67; RESP 16; TEMP 36.4; O2SAT 99
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
== END 2024-04-23 20:34 | disposition home or self-care (01) ==
PROVIDERS: Emergency Provider Physician Assistant; PCP Student in an Organized Health Care Education/Training Program
DX: R10.13 Epigastric pain (principal); R00.1 Bradycardia, unspecified; F17.290 Nicotine dependence, other tobacco product, uncomplicated
CPT/HCPCS: 71275; 80053; 83690; 87637; 93005; 96365; 96375; 99285; 74174; 81003; 83735; 84484; 85025; 93010; J2270; J2405; J3490

== ENCOUNTER 2024-08-04 10:23 | Day surgery (SDC) | payer BC, SELFPAY ==
--- NOTE | 2024-08-03 16:09 | W.PM.DSUDISC ---
Date of service: 08/04/24 Discharge Plan Disposition Patient Disposition: Home Condition: Good Discharge Details Reason For Visit: EGD Attending Provider: Mateus Watkins Primary Care Provider: Rosalio Mar Home Meds and New Rx's Prescriptions: Continued valacyclovir 500 mg tablet 1 tab PO DAILY Patient Comments: TAKE 1 TABLET BY MOUTH TWICE DAILY FOR 3 DAYS THEN TAKE 1 TABLET BY MOUTH DAILY Discharge Instructions Additional Instructions: Osman, I hope you are comfortable through the procedure, and make a quick recovery. Everything went very smoothly. Everything looks very normal to me. I do not see any signs of active irritation or inflammation. I do not see any ulcers. I do not appreciate any hiatal hernia. As we discussed beforehand, I did some biopsies of the stomach, as well as the esophagus to rule out things like Helicobacter pylori, and eosinophilic esophagitis as a source of the symptoms that you experience. Those biopsies wall take about a week or 2 to get back, but I do not see anything right now that we need to make any changes about. Once I have that information, my office will be in touch with any other details. 1. If tolerated, consume a soft, low fiber diet for 1-2 days. [address] Do not drive, drink alcohol, operate machinery, make critical decisions, or do activities that require coordination or balance for 24 hours. 3. You may experience a sore throat for 24 to 48 hours. You may use throat lozenges or gargle with warm salt water to relieve the discomfort. 4. Because air was put into your stomach during the procedure, you may experience some belching. 5. Go directly to the emergency room if you notice any of the following: Develop chills (warm to touch), or if you have a thermometer and your temperature is above 101 Difficulty breathing or difficultly swallowing Persistent vomiting Severe abdominal pain, other than gas cramps Severe chest pain Black, tarry stools Any bleeding ? exceeding one tablespoon 6. Call your physician if the site where your intravenous was started becomes red, swollen, painful, and warm to touch. 7. Your physician has reviewed your pre-procedure medications. Please continue to take those medications as previously ordered. You will be given specific information/education regarding any changes to your medications before leaving. Stand Alone Forms: Anesthesia Discharge Tod Smith (JOE) Activity:: Activity as Tolerated Diet:: As Tolerated Discharge Orders Discharge Orders: Discharge Order (Routine); Ordered 08/03/24 Ordered By: Mateus Watkins DS: Diagnosis Discharge Diagnosis (1) Epigastric pain: Status: Acute Asessment and Plan: Follow-up on biopsy results
--- NOTE | 2024-08-03 16:11 | W.PM.ENDDOP ---
Date of service: 08/04/24 Time of Service: 13:23 Endoscopy Report DATE OF PROCEDURE: 08/04/24 PRE-OP DIAGNOSIS: Gastritis POST-OP DIAGNOSIS: other (Normal-appearing EGD) PROCEDURE: EGD with biopsies SURGEON: Mateus Watkins ANESTHESIA TYPE: General:No Airway ESTIMATED BLOOD LOSS: 5 PATHOLOGY: other (Nondirected biopsies of gastric antrum and body, esophageal biopsies) COMPLICATIONS: None DISPOSITION: same day INDICATIONS: Osman is a 29-year-old male with dyspepsia and epigastric pain FINDINGS: Normal-appearing EGD, with GE junction measuring 38 cm from the incisors PROCEDURE DESCRIPTION: After the initiation of anesthesia, and with the assistance of a bite block, I advanced a standard gastroscope through the mouth past the hypopharynx and into the esophagus.? Under the direct vision of the scope, I advanced down the esophagus towards the stomach.? The upper, mid, and lower esophagus were all normal and healthy appearing. The GE junction measures 38 cm from the incisors. Narrowband imaging was used to assist with mucosal analysis here. The Z-line is regular, and I do not see any signs of Kurtz's esophagus. I advanced down into the stomach proper and perform retroflexion. I did not see any signs of hiatal hernia. The mucosa of the stomach was normal and healthy appearing. There were no ulcers. I advanced down around the incisura angularis towards the pylorus. All of this looked normal and healthy. I am able to traverse the pylorus into the duodenum. The duodenal bulb was healthy, and the villi were obvious and observable. I advanced down to the third portion of the duodenum. All of this was normal without any evidence of inflammation. I then brought the camera back up into the stomach and performed some nondirected biopsies of the gastric antrum and body to rule out Helicobacter pylori as a source of his previous symptoms. Biopsies were performed with cold forceps with minimal bleeding. I also performed some nondirected biopsies along the length of the esophagus to rule out eosinophilic esophagitis. I advanced the camera back into the stomach, and emptied it. The camera was then removed along the length of the esophagus 1 last time. No other abnormalities were appreciated.
--- NOTE | 2024-08-04 08:04 | W.ANESPRE ---
General Info Date of Service Date Performed: 08/04/24 Height: 5 ft 10.5 in Weight: 97.692 kg Body Mass Index (BMI): 30.4 Surgical Procedure: Operation Date: 08/04/24 12:05 Proposed Procedure Side Surgeon p Gastroscopy Mateus Watkins MD Meds Allergies and Home Medications Allergies Allergy/AdvReac Type Severity Reaction Status Date / Time No Known Allergies Allergy Verified 08/04/24 11:43 Home Medication ?Medication ?Instructions ?Recorded valacyclovir 500 mg tablet 1 tab PO DAILY 02/26/22 Current Visit Medications: Current Medications Generic Name Dose Route Start Last Admin Trade Name Freq PRN Reason Stop Dose Admin Ringer's Solution 1,000 mls @ 80 mls/hr 08/04/24 06:00 IV 08/04/24 23:59 INFUSION WALTER IV Miscellaneous Supplies 1 each 08/04/24 06:00 Iv Access IV 08/04/24 23:59 DIRECTED WALTER Ondansetron HCl 4 mg 08/03/24 16:12 Ondansetron 4 Mg/2 Ml Vial IVP 09/02/24 16:11 Q4H PRN PRN Nausea / Vomiting Sodium Chloride 0 ml 08/04/24 06:00 Normal Saline Flush 10 Ml Syr IV 08/04/24 23:59 PRN PRN Sodium Chloride 0 ml 08/04/24 06:00 Normal Saline 10 Ml Vial IJ 08/04/24 23:59 DIRECTED PRN Sterile Water 0 ml 08/04/24 06:00 Water,Injection,Sterile 10 Ml Vial IJ 08/04/24 23:59 DIRECTED PRN PFSH Active Problems Active Problems: Problem Status Onset Code Overweight Acute E66.3 Epigastric pain Acute R10.13 Stiff neck Acute M43.6 Numbness and tingling in left arm Acute R20.0, R20.2 Chest pain Acute R07.9 Insomnia Acute G47.00 Anxiety disorder Acute F41.9 Elevated MCV Acute R71.8 Elevated serum creatinine Acute R79.89 Chronic headache Acute R51.9, G89.29 Arm paresthesia, left Acute R20.2 Medical History Medical History Bicuspid aortic valve External hemorrhoid, bleeding History of blurred vision Laceration of left hand while cleaning out a deer Recurrent dislocation of right shoulder Tinnitus, right Medical History Comments:: Vaped this morning; marijauna a week ago Surgical History Surgical History S/P arthroscopy of right shoulder Tobacco Smoking/Tobacco Use Status: Former Tobacco Use Smokeless tobacco user: dissolvable tobacco Passive smoking exposure: No Alcohol Alcohol Intake: current Alcohol intake frequency: a few times a week Alcohol type: beer Substance Use Substance use: Never Substance use type: does not use Vital Signs and Lab Results Vital Signs Most Recent Vital Signs in EMR: Temp Pulse Resp BP Pulse Ox 36.7 C 51 L 16 128/77 99 08/04/24 11:31 08/04/24 11:31 08/04/24 11:31 08/04/24 11:31 08/04/24 11:31 Lab Results Blood Type / Crossmatch: No Data to Display Complete Blood Count: No Data to Display Complete Metabolic Panel: No Data to Display Liver Function Panel: No Data to Display Coagulation Panel: No Data to Display Cardiac Panel: No Data to Display Arterial Blood Gas: No Data to Display Venous Blood Gas: No Data to Display Pancreas Panel: No Data to Display Thyroid Panel: No Data to Display Infectious Disease: No Data to Display Blood Cultures: No Data to Display Toxicology Panel: No Data to Display Imaging and Studies Imaging and Studies Study information below may be from another EMR and interpreted by another provider. Please see original notes in EMR for more complete details. EKG Summary: EKG PATIENT NAME: Sher Roche UNIT #: [id number] ORDERING PROVIDER: Bianca Padilla PRIMARY CARE PROVIDER: Rosalio Mar DATE/TIME OF SERVICE: 04/23/241909 : 1995 PERFORMING LOCATION: ER APPROVED REPORT Exam: Resting ECG Reason for Exam: chest pain Patient Location: E HR:54 bpm ECG Measurements Heart Rate 54 AXIS DC 159 P 17 QRSd 87 QRS 40 QT 414 T27 QTc 395 Conclusion Sinus bradycardia...rate< 60 Normal Benedict/Interval Previous T wave changes in inferior leads from earlier today resolved There are no significant changes compared to prior EKG performed on 12/07/2022 at 10:22. <Electronically signed by ELMER HUNTER MD in [facility]> E-Sign Date: 04/23/24 E-Sign Time: 1921 ADDENDUM APPROVED REPORT Exam: Resting ECG Reason for Exam: chest pain Patient Location: E HR:54 bpm ECG Measurements Heart Rate 54 AXIS DC 159 P 17 QRSd 87 QRS 40 QT 414 T27 QTc 395 Conclusion Sinus bradycardia...rate< 60 Normal Benedict/Interval Previous T wave changes in inferior leads from earlier today resolved There are no significant changes compared to prior EKG performed on 12/07/2022 at 10:22. I have reviewed and I agree with the emergency room physician's ECG interpretation. Electronically signed by: <Electronically signed by Claudia Silverman M.D. in [facility]> 04/25/24 0758 Cosigned by: Echocardiogram Summary: Patient Name: hSer Roche Unit #: [id number] Loc: Ordering Provider: Sally Charlton Status: REG I Primary Care Provider: Sally Charlton Date of Exam: 12/03/22 Sex: M Admission Date: 12/03/22 : 1995 Age: 27 APPROVED REPORT EXAM: Comprehensive 2D, Doppler, and color-flow Echocardiogram Patient Location: Out-Patient Supervisor Roving Department: Bibi Adams RDCS (AE) Indications: Bicuspid aortic valve, Chest pain, Dizziness Other Information Study Quality: Good Conclusion The left ventricular wall thickness and chamber size. Ejection fraction is 65%. Wall motion is normal Normal right ventricular size and systolic function Both atria are normal in size Aortic valve is bicuspid with trace regurgitation Normal aortic root and ascending aorta Wall motion Left Ventricle The left ventricle is normal size. The left ventricular systolic function is normal. The left ventricular ejection fraction is within the normal range. There is normal left ventricular wall thickness. There is normal LV segmental wall motion. There is no ventricular septal defect visualized. LVEF is 65%. Right Ventricle The right ventricle is normal size. The right ventricular systolic function is normal. Atria The left atrium size is normal. The right atrium size is normal. The interatrial septum is intact with no evidence for an atrial septal defect. Aortic Valve Aortic valve is bicuspid. There is no aortic valvular stenosis. Traceaortic regurgitation. There is an eccentric jet of aortic insufficiency directed against the anterior mitral leaflet. Mitral Valve The mitral valve is normal in structure. No evidence of mitral valve stenosis. Trace mitral regurgitation. Tricuspid Valve The tricuspid valve is normal in structure. There is no tricuspid valve stenosis. Trace tricuspid regurgitation. Pulmonic Valve The pulmonary valve is normal in structure. There is no pulmonic valvular stenosis. Trace pulmonic regurgitation. Great Vessels The aortic root is normal in size. The ascending aorta is normal in size. Aortic arch is normal in caliber. IVC is normal in size and collapses >50% with inspiration. Pericardium There is no pericardial effusion. 2D Dimensions IVSD d PLAX 0.86 cm M: 0.6-1.2Ao Root d 3.03 cm M: 3.1 - 3.7 LVPW d PLAX 0.86 cm M: 0.6 - 1.2Ao Asc Diam d 3.27 cm M: 2.6 - 3.4 LVID d PLAX 5.17 cm M: 4.2 - 5.8 LVDs 3.52 cm M: 2.5 - 4.0 LV EF Teichholz 59.6 % FS31.88 % LV EDV (Teich)127.7 mL LV ESV (Teich)51.6 mL M-Mode TAPSE 2.56 cm (M/F) >1.7 Auto EF LV EDV N3K311.1 mLLV EDV Q8D484.1 mLLV EDV BP148.6 mL LV ESV A4C59.0 mLLV ESV A2C66.1 mLLV ESV BP62.6 mL LVEF(%) A4C56.0 %LVEF(%) A2C58.7 %LVEF(%) BP57.8 % LV SV A4C75.0 mlLV SV A2C93.9 mlLV SV BP85.9 ml LV CO A4C3.6 L/minLV CO A2C4.4 L/minLV CO BP4.0 L/min HR A4C47.87 BPMHR A2C46.94 BPMLV EDV Index (BP) LA Volume LA Length A4C5.1 cmLA Length A2C4.5 cm LA Area A4C s 15.34 cm2LA Area A2C s 15.91 cm2 LA Vol A4C A-L39.44 mLLA Vol A2C A-L47.86 mLLA Vol Biplane A-L46.1 mL LA Vol/BSA A4C A-LLA Vol/BSA A2C A-LLA Vol/BSA BP A-L 21.5 mL/m2 LA Vol A4C MOD34.5 mLLA Vol A2C MOD44.4 mLLA Vol BP MOD41.4 mL RA Volume RA Area A4C13.6 cm2RA ESV A4C (A-L)36.4mLRA Vol/BSA A4C A-L RA Length A4C4.3 cmRA ESV A4C (MOD)36.0mL LV Diastology MV E' medial0.101 (>0.07 m/s)MV E Vmax 0.98 (0.4-1.3 m/s) MV E/E' MED9.65 (<14)MV A Vmax 0.45 (0.4-1.3 m/s) MV E' lateral0.163 (>0.1 m/s)E/A Ratio 2.2 MV E/E' LAT6.00 (<14) MV E' Average0.132 m/s MV E/E'(average)7.39 Aortic Valve AoV Vmax1.99 m/sLVOT Vmax 0.84 m/s AoV Peak Grad38.5 mmHgLVOT Peak Grad 2.8 mmHg AoV Area (Vmax)1.83 lw5ACSQ VTI0.231 m AoV VTI0.553 mLVOT Mean Grad 1.7 mmHg AoV Mean Pablo.1.42 m/sLVOT SV 100.46 mL AoV Mean Grad9.3 mmHgLVOT Diam s 2.35 cm AoV Area (VTI)1.82 cm2AV Regurg Peak Gr.61.10 mmHg Velocity Ratio 0.42 AR Decel Slope1.9m/sec2 AR DT 2074 msec AR PHT 601 msec AR Vmax 3.91 m/s Mitral Valve MV DT 187 (160-240 msec) MV Vmax TIPS 0.95 m/s MV Mean Grad 1.4 (<2mmHg) MV VTI 0.312 m Pulmonary Valve PV Vmax 0.93 (0.5-1.5 m/s)RVOT Vmax 0.76 m/s PV Peak Grad 3.4 mmHgRVOT Peak Gr.2.3 mmHg PV Mean Vel0.67 m/sRVOT VTI0.188 m PV Mean Grad 2.0 mmHgRVOT Mean Gr.1.3 mmHg Tricuspid Valve RA Pressure 3.00 mmHgTR Vmax 1.88 m/s TV S'0.11 m/sTR Peak Grad 14.0 mmHg RVSP (TR) 17.1 mmHg Ordered By: Sally Charlton CC: Dictated By: Claudia Silverman M.D. 12/03/22 1207 <Electronically signed by Claudia Silverman M.D. in [facility]> 12/03/22 1249 Transcribed By: Claudia Silverman MD This is privileged, confidential information intended only for the provider named. Any use or distribution by any person other than this provider is strictly prohibited. If you receive this report in error, please notify us immediately at [phone] and return the original report to us at the address above. Thank-you. Anesthesia Assessment and Plan Anesthesia History Personal History: No History of Anesthesia Complications Family History: No Family History of Anesthesia Complications Exercise Tolerance Exercise Tolerance: Metabolic Equivalents>4 Pertinent Negatives Pertinent Negatives: No Major Pulmonary Symptoms or Complaints and No History of CVA/TIA Cardiac & Pulmonary Exam Cardiac Exam: Normal S1/S2 Heart Sounds Pulmonary Exam: Clear Bilateral Breath Sounds Implantable Cardiac Device Does patient have a Pacemaker or an ICD?: No Airway Exam Known Difficult Airway: No Mallampati Class: 1 Mouth Opening: Normal (> 3cm) Thyromental Distance: Greater than 3 cm Neck Range of Motion: Full ROM Neck Circumference: Normal Teeth Condition: Normal Dentition ASA Classification ASA Score: ASA 2 Emergency Case?: No NPO Status NPO Status: NPO Clears >2 hours, Solids >8 hours Anesthesia Plan Resuscitation Status: Full Code Anesthesia Technique: General Anesthesia Airway Planned: Natural Airway Monitors Used: Standard Monitors Preoperative Comments:: 29 yo male with NKDA for EGD. Sig PMHx: bicuspid Ao valve, anxiety. left arm paresthesia. former smoker. ECHO: LVEF 65%. AoV bicuspid with trace regurg. ECG: sinus.
[2024-08-04 11:31] VITALS: BP 128/77; PULSE 51; RESP 16; TEMP 36.7; O2SAT 99
[2024-08-04] MEDS: Lactated Ringers 1,000 ML 80 ML IV (12:06)
[2024-08-04 12:28] VITALS: BMI 30.4
--- NOTE | 2024-08-04 13:15 | STOM_PTH ---
PATIENT: Sher Roche LOC: [facility] U#:[id number] AGE/SX: 29/M ROOM: RE08/04/[address]: Mateus Watkins MD : 1995 BED: DIS: 08/04/2024 SPEC #: [id number] RECD: 08/04/24 17:39 STATUS: JOVANNY REQ #: [id number] RAOUL: 08/04/24 13:[address]: Mateus Watkins DEPT: Surgical Specimen RECD BY: Bianca Magana ENTERED: 08/04/24 17:40 SP TYPE: STOMACH OTHR DR: Rosalio Mar Tissues: 1 - STOMACH BIOPSY 2 - STOMACH BIOPSY 3 - ESOPHAGUS BIOPSY Procedures: GROSS AND MICRO LEVEL 4 Comments: [id number]
[2024-08-04 13:23] VITALS: BP 114/68; PULSE 70; RESP 16; TEMP 36.5; O2SAT 98
--- NOTE | 2024-08-04 13:43 | W.ANESPOSTOP ---
Postoperative Evaluation Date, Time and Location Date Performed: 08/04/24 Time Performed: 13:32 Patient Location: Day Surgery Unit Vital Signs Most Recent Imported Vital Signs: Most Recent Vital Signs Temp Pulse Resp BP Pulse Ox 36.5 C 70 16 114/68 98 08/04/24 13:23 08/04/24 13:23 08/04/24 13:23 08/04/24 13:23 08/04/24 13:23 Pain Score Most Recent Pain Score: Most Recent Pain Score Pain Level 0 08/04/24 13:23 Assessment Mental Status: Awake (Alert & Oriented to Patient Baseline) Airway and Respiratory Function: Patent airway with normal (patient baseline) respiratory exam Cardiovascular Function: Hemodynamically Stable Hydration Status: Adequately Hydrated Nausea & Vomiting: No Nausea or Vomiting Pain: Pt. Denies Any Pain Peripheral Nerve Block: Patient did not receive a nerve block
[2024-08-04 13:49] VITALS: BP 134/88; PULSE 72; RESP 14; TEMP 36.2; O2SAT 98
== END 2024-08-04 14:01 | disposition home or self-care (01) ==
LOC: SUR 10:24
PROVIDERS: PCP Student in an Organized Health Care Education/Training Program; Visit Provider Surgery
PROC: 0DJ68ZZ Inspection of Stomach, Via Natural or Artificial Opening Endoscopic (ICD-10-PCS; CPT 43235; principal; 2024-08-04 12:00)
DX: R10.13 Epigastric pain (principal); K22.89 Other specified disease of esophagus; B96.81 Helicobacter pylori [H. pylori] as the cause of diseases classified elsewhere
CPT/HCPCS: 43239; 88305; J2003; J2704

== ENCOUNTER 2024-08-26 10:58 | Outpatient (CLI) | payer BC, SELFPAY ==
--- NOTE | 2024-08-26 | DI.RAD_ITS ---
Exam(s) XR ANKLE LT COMPLETE EXAM: XR ANKLE LT COMPLETE CLINICAL HISTORY: LEFT ICD-10: M25.572 PAIN IN LEFT ANKLE AND JOINTS OF LEFT FOOT TECHNIQUE: 2D digital imaging was performed. Three views. COMPARISON: No exams were available for comparison FINDINGS: BONES: No acute fracture is present. No bony destructive lesion is seen. JOINTS:The ankle mortise is normally aligned. SOFT TISSUE: Mild swelling. IMPRESSION: Unremarkable radiographs of the left ankle. The preliminary [facility] report was reviewed. DATA REPOSITORY: RADIATION DOSE DELIVERED:
--- NOTE | 2024-08-26 12:46 | DI.[facility]_ITS ---
PROCEDURE INFORMATION: Exam: XR Left Ankle Exam date and time: 08/26/2024 11:35 AM Age: 29 years old Clinical indication: Other: Pain in left ankle and joints of left foot TECHNIQUE: Imaging protocol: Radiologic exam of the left ankle. Views: 3 or more views. COMPARISON: CR XR ANKLE LT COMPLETE 10/23/2023 3:53 PM FINDINGS: Bones/joints: There is no acute fracture or dislocation. Mild enthesopathic spurring in the posterosuperior calcaneal tuberosity. Next and mild joint effusion suspected in the anterior ankle recess. Soft tissues: There is mild soft tissue swelling suspected of the hindfoot. IMPRESSION: No definite acute fracture or dislocation. Dictated and Authenticated by: Jorge Collier MD. Orderin Genesis Dasilva MD
== END 2024-08-26 11:18 ==
PROVIDERS: PCP Student in an Organized Health Care Education/Training Program; Visit Provider Nurse Practitioner Family
DX: M25.572 Pain in left ankle and joints of left foot (principal)
CPT/HCPCS: 73610

== ENCOUNTER 2024-09-07 16:19 | Outpatient (REF) | payer BC, SELFPAY ==
[2024-09-08 13:33] LABS: Helicobacter pylori Ag, Feces Negative (Negative)
== END 2024-09-07 16:20 | disposition home or self-care (01) ==
LOC: LBN 16:19
PROVIDERS: Physical Therapy Assistant; PCP Student in an Organized Health Care Education/Training Program; Visit Provider Student in an Organized Health Care Education/Training Program
DX: A04.8 Other specified bacterial intestinal infections (principal)
CPT/HCPCS: 87338